=== PATIENT | female | born 1960 | race Caucasian/White ===

== ENCOUNTER → 2020-11-08 14:02 | Outpatient (CLI) | payer OTHER, SELFPAY ==
--- NOTE | 2020-11-08 | DI.RAD.S_ITS ---
PROCEDURE: XR KNEE RT 3V INDICATIONS: PAIN IN RT KNEE TECHNIQUE: 3 views of the knee were acquired. COMPARISON: None. FINDINGS: Bones: No fractures or dislocations. No suspicious bony lesions. Moderate osteoarthritic changes, most pronounced at the patellofemoral joint. Soft tissues: No joint effusion. No suspicious soft tissue calcifications. IMPRESSION: Moderate osteoarthritis. Dictated by: Jammie Marquez M.D. on 11/08/2020 at 16:59 Approved by: Jammie Marquez M.D. on 11/08/2020 at 17:00
--- NOTE | 2020-11-08 | DI.RAD.S_ITS ---
PROCEDURE: XR KNEE LT 3V INDICATIONS: PAIN IN RT KNEE TECHNIQUE: 3 views of the knee were acquired. COMPARISON: [facility], , XR KNEE RT 3V, 11/08/2020, 14:37. FINDINGS: Bones: No fractures or dislocations. No suspicious bony lesions. Moderate degenerative joint disease at the medial femorotibial compartment and patellofemoral compartment. Soft tissues: Small joint effusion. No suspicious soft tissue calcifications. IMPRESSION: Moderate osteoarthritis and small knee joint effusion. Dictated by: Jammie Marquez M.D. on 11/08/2020 at 16:58 Approved by: Jammie Marquez M.D. on 11/08/2020 at 16:59
[2020-11-08 15:42] LABS: Add Manual Diff / Slide Review NO; Basophils Absolute Auto 100 /uL (0-100); Basophils Percent Auto 1.3 % (0-2); Eosinophils Absolute Auto 100 /uL (0-450); Eosinophils Percent Auto 1.7 % (2-4); Hemoglobin 14.5 g/dL (12.0-16.0); Lymphocytes Absolute Auto 2200 /uL (1100-4500); Lymphocytes Percent Auto 24.8 % (25-40); Mean Corpuscular HGB Conc 34.6 % (30-36); Mean Corpuscular Hemoglobin 28.9 PG (26-34); Mean Corpuscular Volume 83.7 fL (80-100); Monocytes Absolute Auto 600 /uL (0-900); Monocytes Percent Auto 6.6 % (3-14); Neutrophils Absolute Auto 5700 /uL (1500-7000); Neutrophils Percent Auto 65.6 % (50-75); Platelet Count 289 X10^3/uL (150-400); Red Blood Cell Count 5.02 X10^6/uL (4.0-5.2); Red Cell Distribution Width 14.3 % (11.6-14.8); White Blood Cell Count 8.7 X10^3/uL (4.5-11.0)
[2020-11-08 16:53] LABS: Thyroid Stimulating Hormone 4.31 uIU/mL (0.47-4.68)
[2020-11-08 16:58] LABS: Alanine Aminotransferase 27 IU/L (<35); Albumin 4.5 g/dL (3.5-5.0); Albumin Globulin Ratio 1.6 (1.0-2.8); Alkaline Phosphatase 93 U/L (38-126); Aspartate Aminotransferase 33 IU/L (14-36); BUN Creatinine Ratio 19.7 (6-22); Bilirubin Total 0.7 mg/dL (0.2-1.3); Blood Urea Nitrogen 15 mg/dL (7-17); Calcium 9.9 mg/dL (8.4-10.2); Carbon Dioxide 25 mmol/L (22-32); Chloride 101 mmol/L (98-107); Cholesterol 280 mg/dL (140-199); Estimated Glomerular Filt Rate > 60.0 mL/min (>60); Gamma Glutamyl Transpeptidase 72 U/L (12-43); Globulin 2.9 g/dL (1.7-4.1); Glucose 113 mg/dL (70-100); HDL Cholesterol 62 mg/dL (40-60); HEMOLYSIS < 15 (0-50); LDL Cholesterol Calculated 166 mg/dL (<100); Potassium 4.7 mmol/L (3.4-5.1); Sodium 137 mmol/L (137-145); Total Protein 7.4 g/dL (6.3-8.2); Triglycerides 259 mg/dL (35-150)
[2020-11-08 17:01] LABS: Hemoglobin A1C% w Est Avg Glu 5.9 % (4.0-6.0)
[2020-11-08 17:42] LABS: Vitamin B12 629 pg/mL (239-931)
[2020-11-10 15:11] LABS: Albumin 3.7 g/dL (2.9-4.4); Alpha-1-Globulin 0.3 g/dL (0.0-0.4); Alpha-2-Globulin 0.8 g/dL (0.4-1.0); Gamma Globulin 1.1 g/dL (0.4-1.8); Globulin Total 3.4 g/dL (2.2-3.9); Immunoglobulin A, Serum 208 mg/dL (87-352); Immunoglobulin G,Serum 912 mg/dL (586-1602); Immunoglobulin M, Serum 185 mg/dL (26-217); Protein, Total 7.1 g/dL (6.0-8.5)
== END ==
PROVIDERS: PCP Internal Medicine; Referring Provider Internal Medicine; Visit Provider Internal Medicine
DX: K75.0 Abscess of liver (principal); G58.9 Mononeuropathy, unspecified; R73.9 Hyperglycemia, unspecified; E78.5 Hyperlipidemia, unspecified; I10 Essential (primary) hypertension; M25.561 Pain in right knee
CPT/HCPCS: 36415; 73562; 80053; 80061; 82607; 82784; 82977; 83036; 84155; 84165; 84443; 85025; 86334

== ENCOUNTER → 2020-11-15 13:16 | Outpatient (CLI) | payer OTHER, SELFPAY ==
[2020-11-15] MEDS: COVID-19 VACC #1, MRNA(MOD) 100 MCG/0.5 ML VIAL IM (13:34)
== END ==
PROVIDERS: PCP Internal Medicine; Visit Provider Internal Medicine
DX: Z23 Encounter for immunization (principal)
CPT/HCPCS: 0011A; 91301

== ENCOUNTER → 2020-12-14 15:24 | Outpatient (CLI) | payer OTHER, SELFPAY ==
[2020-12-14] MEDS: COVID-19 VACC #2, MRNA(MOD) 100 MCG/0.5 ML VIAL IM (15:31)
== END ==
PROVIDERS: PCP Internal Medicine; Visit Provider Internal Medicine
DX: Z23 Encounter for immunization (principal)
CPT/HCPCS: 0012A; 91301

== ENCOUNTER → 2020-12-29 07:56 | Outpatient (CLI) | payer OTHER, SELFPAY ==
[2020-12-29 10:36] LABS: COVID19 -Nasal RAPID Negative (Negative)
== END ==
PROVIDERS: PCP Internal Medicine; Visit Provider Obstetrics & Gynecology
DX: Z01.812 Encounter for preprocedural laboratory examination (principal); Z20.822 Contact with and (suspected) exposure to COVID-19
CPT/HCPCS: 87635

== ENCOUNTER 2020-12-30 06:30 | Day surgery (SDC) | payer OTHER, SELFPAY ==
[2020-12-28 11:31] VITALS: BMI 55.0
[2020-12-30] VITALS (8 sets, daily range): BP systolic 141–162; BP diastolic 70–88; PULSE 66–92; RESP 12–22; TEMP 36.6–37.1; O2SAT 96–98; BMI 55.6
--- NOTE | 2020-12-30 | PATH_ITS ---
[facility] Accession Number: [id number] . 01 Material submitted: . PART A: endometrium - ENDOMETRIAL POLYPS PART B: endometrium - ENDOMETRIAL CURETTAGE . 02 Diagnosis: A. Endometrium, Polyps, Biopsies: Fragments of benign endometrial polyp. No evidence of neoplasia or hyperplasia. . B. Endometrium, Curettage: Scant fragments of inactive/noncycling endometrium. No evidence of neoplasia or hyperplasia. [facility] 01/04/2021 1305 Local . 02 Electronically signed: . Yvrose Osman MD, Pathologist NPI- [id number] . 01 Gross description: . A. The specimen is received in formalin, labeled endometrial polyp, and consists of multiple jimenez-pink fragments of soft tissue measuring 3.0 x 2.5 x 0.7 cm in aggregate. The base of the largest fragment is inked blue, and the fragment is bisected. The specimen is entirely submitted in cassette A1. B. The specimen is received in formalin, labeled endometrial curettage, and consists of multiple jimenez-pink fragments of soft tissue admixed with clotted blood measuring 1.2 x 1.0 x 0.2 cm in aggregate. The specimen is filtered and entirely submitted in cassette B1. ([id number]) /[facility] 12/31/2020 1451 Local . 02 Pathologist provided ICD-10: N84.0 . 02 CPT . 187331, [id number] Performed at: 01 [facility] [address] [place] [address], [place], [place] [id number] MD Will Guan MD Phone: [phone] Performed at: 02 [facility] [address] [place], [place] [id number] MD Yvrose Osman MD Phone: [phone]
--- NOTE | 2020-12-30 07:17 | PM.PREOP ---
Pre-operative Note COVID-19 COVID-19 status: Negative Result date/Date tested (Pos, Neg/Pending): 12/29/20 Interval Note History & Physical reviewed/Exam performed by Physician: Yes Changes to H&P: No
--- NOTE | 2020-12-30 07:20 | SUR.OPER ---
Lithotomy on padded OR bed, head on pillow, arms secured on padded arm boards at <90 degrees abduction. Legs secured in padded bariatric yellow fins stirrups.
[2020-12-30] MEDS: LACTATED RINGERS 1,000 ML 100 ML IV (07:25)
--- NOTE | 2020-12-30 08:20 | P.OP_ITS ---
Operative Date/Time/Diagnoses Date of procedure: 12/30/20 Time of procedure: 08:20 Pre-op diagnosis: Thickened endometrium on ultrasound Post-op diagnosis: same (Benign appearing endometrial polyps) Procedure & Clinicians Procedure: Hysteroscopy with resection of polyps and endometrial curettage Same procedure as scheduled: Yes Indications: Thickened endometrium on ultrasound Surgeon: Diane Tesfaye Click Yes if Unassisted: Yes Anesthesia Type: General Operative Notes Findings: Two large endometrial polyps that were benign in appearance, thin endometrium otherwise Closure Type: not applicable Specimen(s): other (Endometrial polyps and endometrial curettage) Estimated Blood Loss (mL): 1 Blood products transfused: none Procedure in detail: The patient was brought to the operating room where she underwent general anesthesia. She was placed in low stirrups She was prepped and draped in usual sterile fashion with pulsatile stockings in place and functional, warming in place. Her bladder was drained with in and out catheter. A single-tooth tenaculum was placed on the anterior lip of the cervix and the uterus dilated to #8 Hegar dilator. The hysteroscope was placed into the uterus with a sorbitol solution running and under constant suction. The resecting loop set at 80 W of cutting was used to resect the polyps down to the level of the endometrium. A endometrial curettage was performed. The polyp and the endometrial curettage w as sent to pathology. The patient went to recovery room in good condition counts of instruments and sponges were correct. Estimated blood loss less than 5 mL. The sorbitol solution I=O approximately 2000 mL. Complications: none Post-operative Condition: stable Disposition: same day surgery Plan for aftercare: Home when awake and stable. Further treatment and evaluation based on biopsy results.
[2020-12-30] MEDS: KETOROLAC 30 MG/ML VIAL IV (08:24)
[2020-12-30] MEDS: ACETAMINOPHEN 325 MG TABLET 975 MG PO (08:56)
== END 2020-12-30 09:20 | disposition home or self-care (01) ==
PROVIDERS: PCP Internal Medicine; Referring Provider Specialist; Visit Provider Specialist
PROC: 0UDB8ZZ Extraction of Endometrium, Via Natural or Artificial Opening Endoscopic (ICD-10-PCS; CPT 58558; principal; 2020-12-30 07:45)
DX: N84.0 Polyp of corpus uteri (principal); I10 Essential (primary) hypertension; K21.9 Gastro-esophageal reflux disease without esophagitis; K22.70 Barrett's esophagus without dysplasia
CPT/HCPCS: 58558; 82962; J0330; J1100; J1885; J2250; J2405; J2704; J3010

== ENCOUNTER → 2021-02-09 13:12 | Outpatient (CLI) | payer OTHER, SELFPAY ==
--- NOTE | 2021-02-09 13:12 | DI.US.S_ITS ---
PROCEDURE: US PELVIC COMPLETE INDICATIONS: Pelvic pain S/P D C TECHNIQUE: Real-time scanning was performed of the pelvic organs, with image documentation. Additional endovaginal scanning was necessary due to incomplete visualization of the adnexal and endometrial structures by transabdominal scanning. COMPARISON: [facility], US, US PELVIC COMPLETE, 12/02/2020, 15:34. FINDINGS: Uterus: Uterus is retroverted and normal in size at 3.2 x 3.6 x 5.8 cm. The endometrium measures 7.6 mm in combined thickness. This is abnormally thickened for postmenopausal patient and there is a small amount of heterogeneity to the endometrial lining thickening and a small amount of free fluid. Ovaries: Normal on the right measuring 1.3 x 1.1 x 0.9 cm and also normal on the left measuring 1.8 x 1.3 x 1.1 cm. Other: No pathologic free abdominal or pelvic fluid. IMPRESSION: The prior endometrial lining thickening 12/02/20 had measured up to 13.6 mm, and currently measures 7.6 mm. Reportedly D&C procedure was performed 12/30/20. The current mild endometrial lining thickening may reflect sequela of this recent procedure and no Jostin finding suggestive of endometritis or endometrial abscess formation is seen. The endometrial lining does not appear hyperemic. Source of current persistent pelvic pain after D&C procedure is not found. Follow-up repeat pelvic ultrasound in 6-8 weeks likely is warranted to confirm further resolution of endometrial lining thickening. Dictated by: Khang Cheng M.D. on 02/09/2021 at 15:11 Approved by: Khang Cheng M.D. on 02/09/2021 at 15:15
== END ==
PROVIDERS: PCP Internal Medicine; Referring Provider Specialist; Visit Provider Specialist
DX: R10.2 Pelvic and perineal pain (principal); Z98.890 Other specified postprocedural states
CPT/HCPCS: 76856

== ENCOUNTER → 2021-03-30 14:53 | Outpatient (CLI) | payer OTHER, SELFPAY | PROVIDERS: PCP Internal Medicine; Visit Provider Nurse Practitioner Family | DX: N89.8 Other specified noninflammatory disorders of vagina (principal) | CPT/HCPCS: 87210 ==

== ENCOUNTER → 2021-04-19 11:55 | Outpatient (CLI) | payer OTHER, SELFPAY ==
--- NOTE | 2021-04-19 11:56 | DI.CT.S_ITS ---
PROCEDURE: CT ABDOMEN PELVIS W CON INDICATIONS: Chronic pelvic pain and low grade fever 3 mo PO TECHNIQUE: After the administration of oral and intravenous contrast, axial sections were acquired from the lung bases to the pubic symphysis. Coronal and sagittal reformats were performed. For radiation dose reduction, the following was used: automated exposure control, adjustment of mA and/or kV according to patient size. COMPARISON:None. FINDINGS: Image quality: Excellent. Lung bases: Unremarkable. Heart: No significant findings. ABDOMEN: Liver: Unremarkable. Gallbladder: Previously resected Biliary ducts: Unremarkable. Pancreas: Unremarkable. Spleen: Unremarkable. Adrenal Glands: Unremarkable. Kidneys and Ureters: Unremarkable. Stomach and Bowel: Stomach, small bowel loops, and colon are unremarkable. Peritoneum: No abnormal intraperitoneal fluid. No free air. Ventral Wall: No hernia. Abdominal Nodes: No retroperitoneal or mesenteric adenopathy by size criteria. Vessels: Aorta and inferior vena cava are normal in size. PELVIS: Pelvic Organs: Unremarkable. Bladder: Unremarkable. Pelvic Nodes: No enlarged lymph nodes. Miscellaneous: No inguinal hernias are seen. Bones: Unremarkable. IMPRESSION: No sign of infection or neoplasm. Prior cholecystectomy. Source of current symptoms is not seen. Dictated by: Khang Cheng M.D. on 04/19/2021 at 17:37 Approved by: Khang Cheng M.D. on 04/19/2021 at 17:38
== END ==
PROVIDERS: PCP Internal Medicine; Referring Provider Specialist; Visit Provider Specialist
DX: R10.2 Pelvic and perineal pain (principal); R50.9 Fever, unspecified; R93.89 Abnormal findings on diagnostic imaging of other specified body structures; G89.29 Other chronic pain; Z98.890 Other specified postprocedural states; Z90.49 Acquired absence of other specified parts of digestive tract
CPT/HCPCS: 74177

== ENCOUNTER → 2021-05-17 14:09 | Outpatient (CLI) | payer OTHER, SELFPAY ==
[2021-05-17 14:50] LABS: COVID19 -Nasal RAPID Negative (Negative)
== END ==
PROVIDERS: PCP Internal Medicine; Visit Provider Physician Assistant
DX: J02.9 Acute pharyngitis, unspecified (principal); R09.81 Nasal congestion; R51.9 Headache, unspecified
CPT/HCPCS: 87635

== ENCOUNTER → 2021-05-17 14:53 | Outpatient (CLI) | payer OTHER, SELFPAY ==
--- NOTE | 2021-05-17 14:54 | DI.RAD.S_ITS ---
PROCEDURE: XR CHEST 2V INDICATIONS: fever x5d, chest tightness, hx PNA similar TECHNIQUE: 2 views of the chest were acquired. COMPARISON: None. FINDINGS: Surgical changes and devices: None. Lungs and pleura: Lungs are clear. No pleural effusions or pneumothorax. Mediastinum: Mediastinal contours are normal. Heart size is normal. Bones and chest wall: No suspicious bony abnormalities. Soft tissues appear unremarkable. IMPRESSION: No acute cardiopulmonary abnormality. Dictated by: Fausto Parkinson M.D. on 05/17/2021 at 15:12 Approved by: Fausto Parkinson M.D. on 05/17/2021 at 15:13
== END ==
PROVIDERS: PCP Internal Medicine; Referring Provider Physician Assistant; Visit Provider Physician Assistant
DX: R50.9 Fever, unspecified (principal); J02.9 Acute pharyngitis, unspecified; R09.81 Nasal congestion; R51.9 Headache, unspecified; R07.89 Other chest pain
CPT/HCPCS: 71046; 87635

== ENCOUNTER 2021-09-06 14:14 | Emergency (ER) | payer OTHER, SELFPAY ==
[2021-09-06 14:16] VITALS: BP 222/103; PULSE 99; RESP 18; TEMP 36.6; O2SAT 100; BMI 55.7
--- NOTE | 2021-09-06 14:23 | DI.RAD.S_ITS ---
PROCEDURE: XR CHEST 1V INDICATIONS: chest pain TECHNIQUE: One view of the chest was acquired. COMPARISON: None. FINDINGS: Surgical changes and devices: None. Lungs and pleura: Lungs are clear. No pleural effusions or pneumothorax. Mediastinum: Mediastinal contours appear normal. Heart size is normal. Bones and chest wall: No suspicious bony lesions. Overlying soft tissues appear unremarkable. IMPRESSION: No acute cardiopulmonary process demonstrated radiographically. Dictated by: Naun Akers M.D. on 09/06/2021 at 13:54 Approved by: Naun Akers M.D. on 09/06/2021 at 14:16
[2021-09-06 14:47] LABS: Add Manual Diff / Slide Review NO; Basophils Absolute Auto 100 /uL (0-100); Basophils Percent Auto 1.3 % (0-2); Eosinophils Absolute Auto 100 /uL (0-450); Eosinophils Percent Auto 0.9 % (2-4); Hematocrit 40.9 % (36-46); Hemoglobin 13.4 g/dL (12.0-16.0); Lymphocytes Absolute Auto 2000 /uL (1100-4500); Lymphocytes Percent Auto 23.7 % (25-40); Mean Corpuscular HGB Conc 32.9 % (30-36); Mean Corpuscular Hemoglobin 26.9 PG (26-34); Mean Corpuscular Volume 81.8 fL (80-100); Monocytes Absolute Auto 500 /uL (0-900); Monocytes Percent Auto 6.3 % (3-14); Neutrophils Absolute Auto 5600 /uL (1500-7000); Neutrophils Percent Auto 67.8 % (50-75); Platelet Count 337 X10^3/uL (150-400); Red Cell Distribution Width 14.3 % (11.6-14.8); White Blood Cell Count 8.3 X10^3/uL (4.5-11.0)
[2021-09-06 15:03] LABS: Alanine Aminotransferase 24 IU/L (<35); Albumin 4.6 g/dL (3.5-5.0); Albumin Globulin Ratio 1.3 (1.0-2.8); Alkaline Phosphatase 91 U/L (38-126); Aspartate Aminotransferase 37 IU/L (14-36); BUN Creatinine Ratio 22.1 (6-22); Bilirubin Total 0.7 mg/dL (0.2-1.3); Blood Urea Nitrogen 21 mg/dL (7-17); Carbon Dioxide 25 mmol/L (22-32); Chloride 106 mmol/L (98-107); Creatine Kinase 45 U/L (30-135); Estimated Glomerular Filt Rate > 60.0 mL/min (>60); Globulin 3.5 g/dL (1.7-4.1); Glucose 126 mg/dL (70-100); HEMOLYSIS < 15 (0-50); Lipase 82 U/L (23-300); Magnesium 1.8 mg/dL (1.6-2.3); Sodium 141 mmol/L (137-145); Total Protein 8.1 g/dL (6.3-8.2)
[2021-09-06 15:14] LABS: Troponin I < 0.012 ng/mL (0.01-0.034)
--- NOTE | 2021-09-06 16:14 | DI.CT.S_ITS ---
PROCEDURE: CT HEAD/BRAIN WO CON INDICATIONS: Left-sided headache TECHNIQUE: Noncontrast 4.5 mm thick angled axial sections acquired from the foramen magnum to the vertex, with coronal and sagittal reformats. For radiation dose reduction, the following was used: automated exposure control, adjustment of mA and/or kV according to patient size. COMPARISON: None. FINDINGS: Image quality: Excellent. CSF spaces: Basal cisterns are patent. No extra-axial fluid collections. The ventricles are symmetric in size and shape. Brain: No intracranial bleeds or masses. There is cerebral volume loss for age, with resultant ventricular and sulcal prominence. There are periventricular and deep white matter chronic small vessel ischemic changes. There is intracranial internal carotid artery atherosclerosis. Skull and face: Calvarium and visualized facial bones appear intact, without suspicious lesions. Sinuses: Visualized sinuses and mastoids are clear. IMPRESSION: No acute intracranial disease process. Dictated by: Flor Day MD, PhD on 09/06/2021 at 16:41 Approved by: Flor Day MD, PhD on 09/06/2021 at 16:43
--- NOTE | 2021-09-06 16:14 | ED.GENADULT ---
HPI - General Adult General Chief complaint: Hypertension Stated complaint: High BP Time Seen by Provider: 09/06/21 14:53 Source: patient Mode of arrival: Ambulatory History of Present Illness HPI narrative: Patient here for evaluation high blood pressure. Patient was at a blood donation center yesterday. Blood pressure measured there had a high diastolic measurement over 100 and was decline to donate. Patient states this is unusual for her. Just last week she took her home blood pressure and as she always does on a weekly basis. Her baseline systolic ranges between 130-150, with diastolic 90. She denies any headache or numbness tingling weakness confusion slurred speech or facial droop yesterday. Today she developed small left frontal headache that radiates to the left advent and down to her neck. Blood pressure on arrival noted. It has improved without intervention so far. She is on benazepril for high blood pressure without any dosage changes for over [address] Kathy trinidad. No numbness tingling or weakness. She takes her blood pressure medication at night. One month ago she states she saw her family doctor and it was elevated for blood pressure. In the 1st 2 years of taking benazepril her systolic would be 120/80. She asked if they needed to change her benazepril does and at the time no changes. Patient agrees that medications will eventually need to be changed or increase in dosage. She agrees she will likely take her benazepril twice a day. She usually takes it between 10:00 p.m. and midnight each night. Related Data Home Medications Medication Instructions Recorded Confirmed benazepril 10 mg tablet 10 mg PO DAILY 12/02/20 05/17/21 gabapentin 100 mg capsule 100 mg PO DAILY 12/02/20 05/17/21 rabeprazole 20 mg tablet,delayed 20 mg PO DAILY 12/02/20 05/17/21 release zolpidem 5 mg tablet 5 mg PO BEDTIME PRN 12/02/20 05/17/21 cyclobenzaprine 10 mg tablet 10 mg PO .prn tab 03/30/21 05/17/21 sertraline 50 mg tablet 50 mg PO .prn tab 03/30/21 05/17/21 Allergies Allergy/AdvReac Type Severity Reaction Status Date / Time lavender (Lavandula Allergy Severe Swelling Verified 01/12/22 14:22 angustifolia) of Lip/Tongue/Throat lanolin Allergy Rash Verified 09/06/21 14:22 hydromorphone AdvReac Severe Rash Verified 09/06/21 14:22 [email or web address] Allergy Severe Swelling Uncoded 05/17/21 14:12 of Lip/Tongue/Throat Review of Systems Review of Systems Narrative: GENERAL: Denies chills, fatigue, malaise, fever, sweats. HEENT: Denies sinus pain, ear pain, sore throat RESPIRATORY: Denies dyspnea, cough CARDIOVASCULAR: Denies chest pain, palpitations GASTROINTESTINAL: Denies nausea, vomiting, abdominal pain : Denies dysuria, frequency, hematuria MUSCULOSKELETAL: denies muscle or bony pain SKIN: Denies rash, skin lesions NEUROLOGIC: Denies weakness, numbness, positive headache ROS Unobtainable: All systems reviewed & are unremarkable except as noted in HPI and below Patient History Medical History Anxiety Marinelli's esophagus Chronic insomnia Degenerative arthritis Diverticulosis GERD (gastroesophageal reflux disease) HLD (hyperlipidemia) HTN (hypertension) Impaired fasting glucose Kidney stone Morbid obesity with BMI of 50.0-59.9, adult TYLOR (obstructive sleep apnea) Status post hysteroscopy (~12/30/20) Traumatic leg injury (2016) Surgical History History of colonoscopy (08/2019) Hx of cholecystectomy (2007) Hx of tonsillectomy (1969) Social History Smoking Status: Never smoker alcohol intake: current Smoking Status: Never smoker alcohol intake frequency: a few times a month Substance Use Type: does not use Exam Narrative Exam Narrative: GENERAL: in no distress, not toxic not dyspneic HEAD: Normocephalic. EYES: Pupils equal round No scleral icterus. ENT: Mucous membranes moist. NECK: Trachea midline. No carotid bruit CARDIOVASCULAR: Regular rate and rhythm without murmurs RESPIRATORY: Clear to auscultation. Breath sounds equal bilaterally. No wheezes, rales, or rhonchi. GASTROINTESTINAL: Abdomen soft, non-tender EXTREMITIES: No gross deformities. NEURO: AOx4. Clear speech no facial droop light touch intact bilateral face and hands with strong equal mechanical systems engineer SKIN: Warm and dry PSYCH: Not anxious, is cooperative Initial Vital Signs Initial Vital Signs: Vital Signs Temperature 98 F 09/06/21 14:16 Pulse Rate 99 H 09/06/21 14:16 Respiratory Rate 18 09/06/21 14:16 Blood Pressure 222/103 H 09/06/21 14:16 Pulse Oximetry 100 09/06/21 14:16 Course Course Course Narrative: No new issues during course of stay Orders Ordered: Discontinued Medications Lisinopril (Lisinopril 5 Mg Tablet) 5 mg PO NOW ONE Stop: 09/06/21 16:21 Last Admin: 09/06/21 16:33 Dose: 5 mg Documented by: JAVED Reevaluation(s) Reevaluation #1: Blood pressure improved to 163/77. Reviewed results patient again. Agrees with treatment plan and changes in blood pressure medication. Time: 17:25 Vital Signs Vital signs: Vital Signs - 8 hr 09/06/21 14:16 09/06/21 16:33 Temperature 98 F Pulse Rate 99 H 83 Respiratory Rate 18 Blood Pressure 222/103 H 172/80 H Pulse Oximetry 100 Medical Decision Making Differential Diagnosis Differential Diagnosis: Hypertension/headache Lab Data Result diagrams: 09/06/21 14:27 09/06/21 14:27 Labs: Lab Results 09/06/21 09/06/21 Range/Units 14:27 14:27 WBC 8.3 (4.5-11.0) X10^3/uL RBC 5.00 (4.0-5.2) X10^6/uL Hgb 13.4 (12.0-16.0) g/dL Hct 40.9 (36-46) % MCV 81.8 (80-100) fL MCH 26.9 (26-34) PG MCHC 32.9 (30-36) % RDW 14.3 (11.6-14.8) % Plt Count 337 (150-400) X10^3/uL Neut % (Auto) 67.8 (50-75) % Lymph % (Auto) 23.7 L (25-40) % [place] % (Auto) 6.3 (3-14) % Eos % (Auto) 0.9 L (2-4) % Baso % (Auto) 1.3 (0-2) % Neut # (Auto) 5600 (1885-9443) /uL Lymph # (Auto) 2000 (8307-9872) /uL [place] # (Auto) 500 (0-900) /uL Eos # (Auto) 100 (0-450) /uL Baso # (Auto) 100 (0-100) /uL Sodium 141 (137-145) mmol/L Potassium 4.0 (3.4-5.1) mmol/L Chloride 106 (98-107) mmol/L Carbon Dioxide 25 (22-32) mmol/L BUN 21 H (7-17) mg/dL Creatinine 0.95 (0.52-1.04) mg/dL Estimated GFR > 60.0 (>60) mL/min BUN/Creatinine Ratio 22.1 H (6-22) Glucose 126 H (70-100) mg/dL Calcium 10.0 (8.4-10.2) mg/dL Magnesium 1.8 (1.6-2.3) mg/dL Total Bilirubin 0.7 (0.2-1.3) mg/dL AST 37 H (14-36) IU/L ALT 24 (<35) IU/L Alkaline Phosphatase 91 (38-126) U/L Total Creatine Kinase 45 (30-135) U/L CK-MB (CK-2) TNP CK-MB (CK-2) Rel Index TNP Troponin I < 0.012 (0.01-0.034) ng/mL Total Protein 8.1 (6.3-8.2) g/dL Albumin 4.6 (3.5-5.0) g/dL Globulin 3.5 (1.7-4.1) g/dL Albumin/Globulin Ratio 1.3 (1.0-2.8) Lipase 82 (23-300) U/L Imaging Data CT scan - head: Radiologist's Impression: [address] [address] [address] Scan Report Signed Patient: Morelia Esparza MR#: [id number] : 1960 Acct:[id number] Age/Sex: 61 / F Date of Service: 09/06/21 Loc: ED Accession Number: [id number] ?? Procedure: CT head/brain wo con Ordering Provider: Victor Manuel Norton MD PROCEDURE:? CT HEAD/BRAIN WO CON ? INDICATIONS:? Left-sided headache ? TECHNIQUE:? Noncontrast 4.5 mm thick angled axial sections acquired from the foramen magnum to the vertex, with coronal and sagittal reformats.? For radiation dose reduction, the following was used:? automated exposure control, adjustment of mA and/or kV according to patient size.? ? COMPARISON:? None. ? FINDINGS:? Image quality:? Excellent.? ? CSF spaces:? Basal cisterns are patent.? No extra-axial fluid collections.? The ventricles are symmetric in size and shape.? ? Brain:? No intracranial bleeds or masses.? There is cerebral volume loss for age, with resultant ventricular and sulcal prominence.? There are periventricular and deep white matter chronic small vessel ischemic changes.? There is intracranial internal carotid artery atherosclerosis.? ? Skull and face:? Calvarium and visualized facial bones appear intact, without suspicious lesions.? ? Sinuses:? Visualized sinuses and mastoids are clear.? ? IMPRESSION:? No acute intracranial disease process. ? ? Dictated by: Flor Day MD, PhD on 09/06/2021 at 16:41 ? ? Approved by: Flor Day MD, PhD on 09/06/2021 at 16:43 ? ECG Data Interpretation: Normal sinus rhythm rate [address] elevation or depression MDM Narrative Medical decision making narrative: Appropriate for discharge home. Exam and laboratory studies and imaging reassuring. Blood pressure started improving before giving lisinopril. Patient agrees for treatment plan of likely taking her blood pressure medication twice a day as she has been on this medication for over 2 years without any dosage changes. Return precautions reviewed with her. Discharge Plan Departure Patient Disposition: Home Clinical Impression: Hypertension Instructions: DI for High Blood Pressure Activity Restrictions/Additional Instructions: Call family doctor office in the morning for office appointment with your family doctor or associate for recheck of your blood pressure next week. Take your benazepril blood pressure medication in the morning and at nighttime. Return if worse if any questions or concerns Prescriptions: No Action cyclobenzaprine 10 mg tablet 10 mg PO .prn 0RF benazepril 10 mg tablet 10 mg PO DAILY 0RF gabapentin 100 mg capsule 100 mg PO DAILY 0RF rabeprazole 20 mg tablet,delayed release (DR/EC) 20 mg PO DAILY 0RF Label Comments: 3 months ago was last dose zolpidem 5 mg tablet 5 mg PO BEDTIME PRN (Reason: Sleep) 0RF sertraline 50 mg tablet 50 mg PO .prn 0RF Referrals: Kathy Trinidad MD [Primary Care Provider] -
[2021-09-06 16:33] VITALS: BP 172/80; PULSE 83
[2021-09-06] MEDS: lisinopriL 5 MG TABLET PO (16:33)
[2021-09-06 17:35] VITALS: BP 163/77
== END 2021-09-06 17:37 | disposition home or self-care (01) ==
PROVIDERS: Emergency Provider Emergency Medicine; Family Provider Internal Medicine; PCP Internal Medicine
DX: I10 Essential (primary) hypertension (principal); R51.9 Headache, unspecified
CPT/HCPCS: 36415; 70450; 71045; 80053; 82550; 83690; 83735; 84484; 85025; 93005; 93010; 99284

== ENCOUNTER 2021-09-25 10:54 | Emergency (ER) | payer OTHER, SELFPAY ==
[2021-09-25] VITALS (13 sets, daily range): BP systolic 132–187; BP diastolic 69–86; PULSE 72–87; RESP 13–20; TEMP 36.9; O2SAT 96–100; BMI 55.7
--- NOTE | 2021-09-25 11:25 | DI.RAD.S_ITS ---
PROCEDURE: XR CHEST 1V INDICATIONS: chest pain TECHNIQUE: One view of the chest was acquired. COMPARISON: [facility], CR, XR CHEST 1V, 09/06/2021, 14:31. FINDINGS: Surgical changes and devices: None. Lungs and pleura: Lungs are clear. No pleural effusions or pneumothorax. Mediastinum: Mediastinal contours appear normal. Heart size is normal. Bones and chest wall: No suspicious bony lesions. Overlying soft tissues appear unremarkable. IMPRESSION: 1. No acute cardiopulmonary disease. Dictated by: Will Mooney M.D. on 09/25/2021 at 11:55 Approved by: Will Mooney M.D. on 09/25/2021 at 11:55
[2021-09-25 11:31] LABS: Add Manual Diff / Slide Review NO; Basophils Absolute Auto 0 /uL (0-100); Basophils Percent Auto 0.7 % (0-2); Eosinophils Absolute Auto 100 /uL (0-450); Eosinophils Percent Auto 1.9 % (2-4); Hematocrit 38.4 % (36-46); Hemoglobin 12.7 g/dL (12.0-16.0); Lymphocytes Absolute Auto 1600 /uL (1100-4500); Lymphocytes Percent Auto 21.7 % (25-40); Mean Corpuscular HGB Conc 33.1 % (30-36); Mean Corpuscular Hemoglobin 26.7 PG (26-34); Mean Corpuscular Volume 80.7 fL (80-100); Monocytes Absolute Auto 500 /uL (0-900); Monocytes Percent Auto 6.5 % (3-14); Neutrophils Absolute Auto 5000 /uL (1500-7000); Neutrophils Percent Auto 69.2 % (50-75); Platelet Count 312 X10^3/uL (150-400); Red Blood Cell Count 4.76 X10^6/uL (4.0-5.2); Red Cell Distribution Width 14.9 % (11.6-14.8); White Blood Cell Count 7.2 X10^3/uL (4.5-11.0)
[2021-09-25 11:39] LABS: Alanine Aminotransferase 21 IU/L (<35); Albumin 4.2 g/dL (3.5-5.0); Albumin Globulin Ratio 1.3 (1.0-2.8); Alkaline Phosphatase 84 U/L (38-126); Aspartate Aminotransferase 33 IU/L (14-36); BUN Creatinine Ratio 17.3 (6-22); Bilirubin Total 0.6 mg/dL (0.2-1.3); Blood Urea Nitrogen 14 mg/dL (7-17); Calcium 9.3 mg/dL (8.4-10.2); Carbon Dioxide 26 mmol/L (22-32); Chloride 106 mmol/L (98-107); Creatine Kinase 39 U/L (30-135); Estimated Glomerular Filt Rate > 60.0 mL/min (>60); Globulin 3.2 g/dL (1.7-4.1); Glucose 132 mg/dL (70-100); HEMOLYSIS 19 (0-50); Lipase 73 U/L (23-300); Magnesium 1.8 mg/dL (1.6-2.3); Potassium 4.2 mmol/L (3.4-5.1); Sodium 139 mmol/L (137-145); Total Protein 7.4 g/dL (6.3-8.2)
[2021-09-25 11:49] LABS: Troponin I < 0.012 ng/mL (0.01-0.034)
[2021-09-25 12:40] LABS: COVID19 -Nasal RAPID Negative (Negative)
--- NOTE | 2021-09-25 13:36 | ED.CHESTPAIN ---
HPI - Chest Pain <Milana Conley PA-C - Last Filed: 09/25/21 21:33> General Chief Complaint: Chest Pain Stated Complaint: High BP, chest pain, nausea Time Seen by Provider: 09/25/21 11:58 Source: patient Mode of arrival: Ambulatory Limitations: no limitations History of Present Illness HPI narrative: 61-year-old female with past medical history hypertension, hypercholesterolemia presents to the ED with 2 days of left-sided chest pressure. Patient states that she started experiencing left-sided chest pressure yesterday evening, and a fluttering feeling. Patient endorses nausea. Pain does not radiate. No aggravating or alleviating factors. Patient has a history of GERD, however patient states that her GERD discomfort is very different than. her current symptoms. Denies history of blood clots. Patient currently takes 30 mg of benazepril daily, is slated to start on 12.5 of hydrochlorothiazide for blood pressure control. Patient states that her blood pressure went up yesterday since her chest pressure started with systolic as high as 200. Patient denies fever, chills, shortness of breath, cough, vomiting, abdominal pain, back pain, lightheadedness, dizziness, syncope. Patient also endorses a headache that she has had for the last 2 weeks which she says is exacerbated every time her blood pressure goes up. Patient denies neck pain, neck stiffness. Denies IV drug use. Related Data Home Medications Medication Instructions Recorded Confirmed benazepril 10 mg tablet 10 mg PO DAILY 12/02/20 05/17/21 gabapentin 100 mg capsule 100 mg PO DAILY 12/02/20 05/17/21 rabeprazole 20 mg tablet,delayed 20 mg PO DAILY 12/02/20 05/17/21 release zolpidem 5 mg tablet 5 mg PO BEDTIME PRN 12/02/20 05/17/21 cyclobenzaprine 10 mg tablet 10 mg PO .prn tab 03/30/21 05/17/21 sertraline 50 mg tablet 50 mg PO .prn tab 03/30/21 05/17/21 Allergies Allergy/AdvReac Type Severity Reaction Status Date / Time lavender (Lavandula Allergy Severe Swelling Verified 09/25/21 11:21 angustifolia) of Lip/Tongue/Throat lanolin Allergy Rash Verified 09/25/21 11:21 hydromorphone AdvReac Severe Rash Verified 09/25/21 11:21 queaseEase Allergy Severe Swelling Uncoded 09/25/21 11:21 of Lip/Tongue/Throat Review of Systems <Milana Conley PA-C - Last Filed: 09/25/21 21:33> Review of Systems ROS Unobtainable: All systems reviewed & are unremarkable except as noted in HPI and below Constitutional Constitutional: Denies chills, Denies fatigue, Denies fever(s), Denies frequent falls, Reports headache(s), Denies lethargy and Denies weakness Eyes Eyes: Denies change in vision, Denies eye discharge, Denies irritation and Denies loss of vision ENT Ears, Nose, Mouth, and Throat: Denies change in voice, Denies dizziness, Reports headache(s), Denies neck pain, Denies sore throat and Denies throat swelling Cardiovascular Cardiovascular: Reports chest pain, Denies irregular heart rhythm, Denies lightheadedness, Denies palpitations, Denies dyspnea, Denies dyspnea on exertion and Denies orthopnea Respiratory Respiratory: Denies cough, Denies dyspnea, Denies dyspnea on exertion and Denies wheezing Gastrointestinal Gastrointestinal: Denies abdominal pain, Denies change in bowel habits, Denies diarrhea, Reports nausea and Denies vomiting Genitourinary Genitourinary: Denies hematuria, Denies flank pain, Denies urinary incontinence and Denies urinary urgency Musculoskeletal Musculoskeletal: Denies back pain, Denies muscle weakness, Denies neck pain, Denies numbness and Denies tingling Integumentary/Breasts Skin/Breast: Denies pruritus, Denies erythema, Denies rash and Denies wounds Neurologic Neurologic: Denies behavioral changes, Denies confusion, Denies dizziness, Denies frequent falls, Reports headache(s), Denies loss of vision, Denies numbness, Denies tingling and Denies weakness Psychiatric Psychiatric: Denies anxiety, Denies behavioral changes, Denies confusion, Denies depression, Denies homicidal ideation and Denies suicidal ideation Endocrine Endocrine: Denies fatigue, Denies flushing and Denies palpitations Hematologic/Lymphatic Hematologic/Lymphatic: Denies easy bruising Allergic/Immunologic Allergic/Immunologic: Denies urticaria, Denies throat swelling and Denies wheezing Patient History <Milana Conley PA-C - Last Filed: 09/25/21 21:33> Medical History Anxiety Marinelli's esophagus Chronic insomnia Degenerative arthritis Diverticulosis GERD (gastroesophageal reflux disease) HLD (hyperlipidemia) HTN (hypertension) Impaired fasting glucose Kidney stone Morbid obesity with BMI of 50.0-59.9, adult TYLOR (obstructive sleep apnea) Status post hysteroscopy (~12/30/20) Traumatic leg injury (2015) Surgical History History of colonoscopy (08/2019) Hx of cholecystectomy (2007) Hx of tonsillectomy (1969) Social History Smoking Status: Never smoker alcohol intake: current Smoking Status: Never smoker alcohol intake frequency: a few times a month Substance Use Type: does not use Exam <Milana Conley PA-C - Last Filed: 09/25/21 21:33> Initial Vital Signs Initial Vital Signs: Vital Signs Pulse Rate 87 09/25/21 11:02 Blood Pressure 186/86 H 09/25/21 11:02 Pulse Oximetry 97 09/25/21 11:02 Const General: cooperative, healthy appearing and comfortable HENMT Head: normal to inspection Eyes General: appearance normal, both eyes and all related structures Neck Neck: normal visual inspection Chest Chest: normal inspection of the chest Resp Effort & Inspection: normal respiratory effort Auscultation: clear to auscultation bilaterally Cardio Rate: regular rate Rhythm: regular rhythm GI Inspection: normal to inspection Other: Abdomen is soft, nondistended, nontender to palpation. No CVA tenderness. General: No CVA tenderness Back/Spine/Pelvis Back: normal to inspection Skin General: no rashes or lesions noted Neuro General: patient alert, patient awake and patient oriented x3 Extrem General: normal to inspection Psych Appearance: grossly normal <Kylee Booth MD - Last Filed: 10/02/21 03:57> Initial Vital Signs Initial Vital Signs: Vital Signs Pulse Rate 87 09/25/21 11:02 Blood Pressure 186/86 H 09/25/21 11:02 Pulse Oximetry 97 09/25/21 11:02 Course <Milana Conley PA-C - Last Filed: 09/25/21 21:33> Orders Ordered: Discontinued Medications Acetaminophen (Acetaminophen 325 Mg Tablet) 975 mg PO NOW ONE Stop: 09/25/21 13:39 Last Admin: 09/25/21 13:56 Dose: 975 mg Documented by: SENIA Al Hydrox/Mg Hydrox/Simethicone 20 ml/ Lidocaine HCl 15 ml 0 ml PO NOW ONE Stop: 09/25/21 13:35 Last Admin: 09/25/21 13:54 Dose: 30 ml Documented by: SENIA Famotidine (Famotidine 20 Mg/2 Ml Vial) 20 mg IV NOW MARTHA Last Admin: 09/25/21 13:55 Dose: 20 mg Documented by: SENIA Sodium Chloride (Normal Saline 0.9%) 1,000 mls @ 1,000 mls/hr IV BOLUS ONE Stop: 09/25/21 14:37 Last Infusion: 09/25/21 16:08 Dose: 0 mls/hr Documented by: Admin: 09/25/21 13:55 Dose: 1,000 mls/hr Documented by: SENIA Ketorolac Tromethamine (Ketorolac 30 Mg/Ml Vial) 15 mg IV NOW ONE Stop: 09/25/21 13:39 Last Admin: 09/25/21 13:54 Dose: 15 mg Documented by: SENIA Metoclopramide HCl (Metoclopramide 10 Mg/2 Ml Inj) 10 mg IV NOW ONE Stop: 09/25/21 13:39 Last Admin: 09/25/21 13:55 Dose: 10 mg Documented by: SENIA Vital Signs Vital signs: Vital Signs - 8 hr 09/25/21 14:13 09/25/21 14:16 09/25/21 14:17 Pulse Rate 83 74 Respiratory Rate 20 20 Blood Pressure 171/74 H Pulse Oximetry 98 100 09/25/21 16:09 Pulse Rate 72 Respiratory Rate 18 Blood Pressure 132/69 Pulse Oximetry <Kylee Booth MD - Last Filed: 10/02/21 03:57> Orders Ordered: Discontinued Medications Acetaminophen (Acetaminophen 325 Mg Tablet) 975 mg PO NOW ONE Stop: 09/25/21 13:39 Last Admin: 09/25/21 13:56 Dose: 975 mg Documented by: SENIA Al Hydrox/Mg Hydrox/Simethicone 20 ml/ Lidocaine HCl 15 ml 0 ml PO NOW ONE Stop: 09/25/21 13:35 Last Admin: 09/25/21 13:54 Dose: 30 ml Documented by: SENIA Famotidine (Famotidine 20 Mg/2 Ml Vial) 20 mg IV NOW MARTHA Last Admin: 09/25/21 13:55 Dose: 20 mg Documented by: SENIA Sodium Chloride (Normal Saline 0.9%) 1,000 mls @ 1,000 mls/hr IV BOLUS ONE Stop: 09/25/21 14:37 Last Infusion: 09/25/21 16:08 Dose: 0 mls/hr Documented by: Admin: 09/25/21 13:55 Dose: 1,000 mls/hr Documented by: SENIA Ketorolac Tromethamine (Ketorolac 30 Mg/Ml Vial) 15 mg IV NOW ONE Stop: 09/25/21 13:39 Last Admin: 09/25/21 13:54 Dose: 15 mg Documented by: SENIA Metoclopramide HCl (Metoclopramide 10 Mg/2 Ml Inj) 10 mg IV NOW ONE Stop: 09/25/21 13:39 Last Admin: 09/25/21 13:55 Dose: 10 mg Documented by: SENIA Vital Signs Vital signs: Vital Signs - 8 hr 09/25/21 14:13 09/25/21 14:16 09/25/21 14:17 Pulse Rate 83 74 Respiratory Rate 20 20 Blood Pressure 171/74 H Pulse Oximetry 98 100 09/25/21 16:09 Pulse Rate 72 Respiratory Rate 18 Blood Pressure 132/69 Pulse Oximetry MDM - Chest Pain <Milana Conley PA-C - Last Filed: 09/25/21 21:33> Lab Data Lab results narrative: D-dimer elevated per age adjusted value. Troponin x2 negative Result diagrams: 09/25/21 11:10 09/25/21 11:10 Labs: Lab Results 09/25/21 09/25/21 09/25/21 Range/Units 11:10 11:10 11:10 WBC 7.2 (4.5-11.0) X10^3/uL RBC 4.76 (4.0-5.2) X10^6/uL Hgb 12.7 (12.0-16.0) g/dL Hct 38.4 (36-46) % MCV 80.7 (80-100) fL MCH 26.7 (26-34) PG MCHC 33.1 (30-36) % RDW 14.9 H (11.6-14.8) % Plt Count 312 (150-400) X10^3/uL Neut % (Auto) 69.2 (50-75) % Lymph % (Auto) 21.7 L (25-40) % Forest % (Auto) 6.5 (3-14) % Eos % (Auto) 1.9 L (2-4) % Baso % (Auto) 0.7 (0-2) % Neut # (Auto) 5000 (2682-1645) /uL Lymph # (Auto) 1600 (0153-2396) /uL Forest # (Auto) 500 (0-900) /uL Eos # (Auto) 100 (0-450) /uL Baso # (Auto) 0 (0-100) /uL D-Dimer 328 H (<230) ng/mL Sodium 139 (137-145) mmol/L Potassium 4.2 (3.4-5.1) mmol/L Chloride 106 (98-107) mmol/L Carbon Dioxide 26 (22-32) mmol/L BUN 14 (7-17) mg/dL Creatinine 0.81 (0.52-1.04) mg/dL Estimated GFR > 60.0 (>60) mL/min BUN/Creatinine Ratio 17.3 (6-22) Glucose 132 H (70-100) mg/dL Calcium 9.3 (8.4-10.2) mg/dL Magnesium 1.8 (1.6-2.3) mg/dL Total Bilirubin 0.6 (0.2-1.3) mg/dL AST 33 (14-36) IU/L ALT 21 (<35) IU/L Alkaline Phosphatase 84 (38-126) U/L Total Creatine Kinase 39 (30-135) U/L CK-MB (CK-2) TNP CK-MB (CK-2) Rel Index TNP Troponin I < 0.012 (0.01-0.034) ng/mL NT-Pro-B Natriuret Pep (<125) pg/mL Total Protein 7.4 (6.3-8.2) g/dL Albumin 4.2 (3.5-5.0) g/dL Globulin 3.2 (1.7-4.1) g/dL Albumin/Globulin Ratio 1.3 (1.0-2.8) Lipase 73 (23-300) U/L SARS-CoV-2 (PCR) (Negative) 09/25/21 09/25/21 09/25/21 Range/Units 11:10 11:26 15:08 WBC (4.5-11.0) X10^3/uL RBC (4.0-5.2) X10^6/uL Hgb (12.0-16.0) g/dL Hct (36-46) % MCV (80-100) fL MCH (26-34) PG MCHC (30-36) % RDW (11.6-14.8) % Plt Count (150-400) X10^3/uL Neut % (Auto) (50-75) % Lymph % (Auto) (25-40) % Forest % (Auto) (3-14) % Eos % (Auto) (2-4) % Baso % (Auto) (0-2) % Neut # (Auto) (3799-0910) /uL Lymph # (Auto) (6776-7586) /uL Forest # (Auto) (0-900) /uL Eos # (Auto) (0-450) /uL Baso # (Auto) (0-100) /uL D-Dimer (<230) ng/mL Sodium (137-145) mmol/L Potassium (3.4-5.1) mmol/L Chloride (98-107) mmol/L Carbon Dioxide (22-32) mmol/L BUN (7-17) mg/dL Creatinine (0.52-1.04) mg/dL Estimated GFR (>60) mL/min BUN/Creatinine Ratio (6-22) Glucose (70-100) mg/dL Calcium (8.4-10.2) mg/dL Magnesium (1.6-2.3) mg/dL Total Bilirubin (0.2-1.3) mg/dL AST (14-36) IU/L ALT (<35) IU/L Alkaline Phosphatase (38-126) U/L Total Creatine Kinase (30-135) U/L CK-MB (CK-2) CK-MB (CK-2) Rel Index Troponin I < 0.012 (0.01-0.034) ng/mL NT-Pro-B Natriuret Pep 111 (<125) pg/mL Total Protein (6.3-8.2) g/dL Albumin (3.5-5.0) g/dL Globulin (1.7-4.1) g/dL Albumin/Globulin Ratio (1.0-2.8) Lipase (23-300) U/L SARS-CoV-2 (PCR) Negative (Negative) Urine Dip Bedside Urine Glucose Negative Bedside Urine Bilirubin - Negative Bedside Urine Ketone - Negative Urine Specific [place] 1.015 Bedside Urine Occult Blood - Negative Bedside Urine pH 6.0 Bedside Urine Protein - Negative Bedside Urine Urobilinogen - Negative Bedside Urine Nitrite - Negative Bedside Urine Leukocytes - Negative Esterase Imaging Data Chest x-ray: Radiologist's Impression: PROCEDURE:? XR CHEST 1V ? INDICATIONS:? chest pain ? TECHNIQUE:? One view of the chest was acquired.? ? COMPARISON:? [facility], , XR CHEST 1V, 09/06/2021, 14:31. ? FINDINGS:? ? Surgical changes and devices:? None.? ? Lungs and pleura:? Lungs are clear.? No pleural effusions or pneumothorax.? ? Mediastinum:? Mediastinal contours appear normal.? Heart size is normal.? ? Bones and chest wall:? No suspicious bony lesions.? Overlying soft tissues appear unremarkable.? ? IMPRESSION:? ? 1.? No acute cardiopulmonary disease. ? ? ? Dictated by: Will Mooney M.D. on 09/25/2021 at 11:55 ? ? Approved by: Will Mooney M.D. on 09/25/2021 at 11:55 ? CT scan - chest: Radiologist's Impression: PROCEDURE:? CT ANGIO CHEST PE PROTOCOL ? INDICATIONS:? Chest pain, elevated dimer ? TECHNIQUE:? After the administration of intravenous contrast, 2 mm thick sections acquired from the pulmonary apices to the posterior costophrenic angles.? 3-dimensional maximum intensity projection (MIP) coronal and sagittal reformats were then acquired through the thorax.? For radiation dose reduction, the following was used:? automated exposure control, adjustment of mA and/or kV according to patient size.? ? COMPARISON:? None. ? FINDINGS:? Image quality:? Excellent.? ? Pulmonary arteries:? Pulmonary arteries are normal in size, and demonstrate no intraluminal filling defects to suggest central pulmonary embolism.? ? Lungs and pleura:? Lungs are clear.? No pleural effusions or pneumothorax.? Central and peripheral airways are patent.? ? Mediastinum:? Heart size is normal, without pericardial effusion.? No mediastinal or hilar adenopathy.? Thoracic aorta is normal in caliber and enhancement.? Esophagus is normal in caliber, with a small hiatal hernia.? ? Bones and chest wall:? No suspicious bony lesions.? Degenerative disc disease throughout thoracic spine is seen.? No acute vertebral body compression fracture.? Thyroid gland is within normal limits.? No axillary or supraclavicular adenopathy.? ? Abdomen:? Visualized upper abdominal solid organs appear normal in the early arterial phase of enhancement.? ? IMPRESSION:? 1. No pulmonary embolism.? No thoracic aortic aneurysm or dissection. 2. Bilateral lungs are clear. 3. No mediastinal or hilar lymphadenopathy.? Small hiatal hernia.? ? ? Dictated by: Mane Rolle M.D. on 09/25/2021 at 14:30 ? ? Approved by: Mane Rolle M.D. on 09/25/2021 at 14:35 ? ECG Data Interpretation: Normal sinus rhythm, no acute ST-T changes. No QT prolongation. ND interval normal MDM Narrative Medical decision making narrative: 61-year-old female with past medical history hypertension, hypercholesterolemia presents to the ED with 2 days of left-sided chest pressure. Concern for ACS versus acute heart failure exacerbation versus arrhythmia versus versus PE versus GERD vs primary headache. Will order EKG, chest x-ray, labs, troponin, BNP, D-dimer. Will treat headache with Tylenol, ketorolac, Reglan, IV fluids. Will treat with Pepcid AC, GI cocktail. Will reassess. Labs within normal limits. Trop x2 negative. Dimer elevsted, CTPE neg. Will discharge patient home with ED return precautions, PCP follow-up. <Kylee Booth MD - Last Filed: 10/02/21 03:57> Lab Data Labs: Lab Results 09/25/21 09/25/21 09/25/21 Range/Units 11:10 11:10 11:10 WBC 7.2 (4.5-11.0) X10^3/uL RBC 4.76 (4.0-5.2) X10^6/uL Hgb 12.7 (12.0-16.0) g/dL Hct 38.4 (36-46) % MCV 80.7 (80-100) fL MCH 26.7 (26-34) PG MCHC 33.1 (30-36) % RDW 14.9 H (11.6-14.8) % Plt Count 312 (150-400) X10^3/uL Neut % (Auto) 69.2 (50-75) % Lymph % (Auto) 21.7 L (25-40) % Forest % (Auto) 6.5 (3-14) % Eos % (Auto) 1.9 L (2-4) % Baso % (Auto) 0.7 (0-2) % Neut # (Auto) 5000 (3405-3007) /uL Lymph # (Auto) 1600 (0005-6638) /uL Forest # (Auto) 500 (0-900) /uL Eos # (Auto) 100 (0-450) /uL Baso # (Auto) 0 (0-100) /uL D-Dimer 328 H (<230) ng/mL Sodium 139 (137-145) mmol/L Potassium 4.2 (3.4-5.1) mmol/L Chloride 106 (98-107) mmol/L Carbon Dioxide 26 (22-32) mmol/L BUN 14 (7-17) mg/dL Creatinine 0.81 (0.52-1.04) mg/dL Estimated GFR > 60.0 (>60) mL/min BUN/Creatinine Ratio 17.3 (6-22) Glucose 132 H (70-100) mg/dL Calcium 9.3 (8.4-10.2) mg/dL Magnesium 1.8 (1.6-2.3) mg/dL Total Bilirubin 0.6 (0.2-1.3) mg/dL AST 33 (14-36) IU/L ALT 21 (<35) IU/L Alkaline Phosphatase 84 (38-126) U/L Total Creatine Kinase 39 (30-135) U/L CK-MB (CK-2) TNP CK-MB (CK-2) Rel Index TNP Troponin I < 0.012 (0.01-0.034) ng/mL NT-Pro-B Natriuret Pep (<125) pg/mL Total Protein 7.4 (6.3-8.2) g/dL Albumin 4.2 (3.5-5.0) g/dL Globulin 3.2 (1.7-4.1) g/dL Albumin/Globulin Ratio 1.3 (1.0-2.8) Lipase 73 (23-300) U/L SARS-CoV-2 (PCR) (Negative) 09/25/21 09/25/21 09/25/21 Range/Units 11:10 11:26 15:08 WBC (4.5-11.0) X10^3/uL RBC (4.0-5.2) X10^6/uL Hgb (12.0-16.0) g/dL Hct (36-46) % MCV (80-100) fL MCH (26-34) PG MCHC (30-36) % RDW (11.6-14.8) % Plt Count (150-400) X10^3/uL Neut % (Auto) (50-75) % Lymph % (Auto) (25-40) % [place] % (Auto) (3-14) % Eos % (Auto) (2-4) % Baso % (Auto) (0-2) % Neut # (Auto) (2767-7575) /uL Lymph # (Auto) (1254-5729) /uL Forest # (Auto) (0-900) /uL Eos # (Auto) (0-450) /uL Baso # (Auto) (0-100) /uL D-Dimer (<230) ng/mL Sodium (137-145) mmol/L Potassium (3.4-5.1) mmol/L Chloride (98-107) mmol/L Carbon Dioxide (22-32) mmol/L BUN (7-17) mg/dL Creatinine (0.52-1.04) mg/dL Estimated GFR (>60) mL/min BUN/Creatinine Ratio (6-22) Glucose (70-100) mg/dL Calcium (8.4-10.2) mg/dL Magnesium (1.6-2.3) mg/dL Total Bilirubin (0.2-1.3) mg/dL AST (14-36) IU/L ALT (<35) IU/L Alkaline Phosphatase (38-126) U/L Total Creatine Kinase (30-135) U/L CK-MB (CK-2) CK-MB (CK-2) Rel Index Troponin I < 0.012 (0.01-0.034) ng/mL NT-Pro-B Natriuret Pep 111 (<125) pg/mL Total Protein (6.3-8.2) g/dL Albumin (3.5-5.0) g/dL Globulin (1.7-4.1) g/dL Albumin/Globulin Ratio (1.0-2.8) Lipase (23-300) U/L SARS-CoV-2 (PCR) Negative (Negative) Urine Dip Bedside Urine Glucose Negative Bedside Urine Bilirubin - Negative Bedside Urine Ketone - Negative Urine Specific [place] 1.015 Bedside Urine Occult Blood - Negative Bedside Urine pH 6.0 Bedside Urine Protein - Negative Bedside Urine Urobilinogen - Negative Bedside Urine Nitrite - Negative Bedside Urine Leukocytes - Negative Esterase Discharge Plan Departure Patient Disposition: Home Clinical Impression: Palpitations Instructions: DI for Chest Pain Activity Restrictions/Additional Instructions: You were evaluated in the ED today for palpitations, chest pain. Your workup including EKG, chest x-ray, labs, CT chest were normal. It is possible that her symptoms are related to acid reflux. You may continue to take Nexium, Pepcid AC for acid reflux. Follow-up with your PCP regarding your hypertension. Please return to the ED if you have worsening symptoms including chest pain, shortness of breath. Prescriptions: No Action cyclobenzaprine 10 mg tablet 10 mg PO .prn 0RF benazepril 10 mg tablet 10 mg PO DAILY 0RF gabapentin 100 mg capsule 100 mg PO DAILY 0RF rabeprazole 20 mg tablet,delayed release (DR/EC) 20 mg PO DAILY 0RF Label Comments: 3 months ago was last dose zolpidem 5 mg tablet 5 mg PO BEDTIME PRN (Reason: Sleep) 0RF sertraline 50 mg tablet 50 mg PO .prn 0RF Referrals: Kathy Trinidad MD [Primary Care Provider] - <Kylee Booth MD - Last Filed: 10/02/21 03:57> Cosign ED Attending Cosignature Attestation: I was immediately available in the department for consultation throughout this patient's visit. I agree with documentation as above. Kylee Booth MD
[2021-09-25 13:44] LABS: D Dimer 328 ng/mL (<230)
--- NOTE | 2021-09-25 13:53 | DI.CT.S_ITS ---
PROCEDURE: CT ANGIO CHEST PE PROTOCOL INDICATIONS: Chest pain, elevated dimer TECHNIQUE: After the administration of intravenous contrast, 2 mm thick sections acquired from the pulmonary apices to the posterior costophrenic angles. 3-dimensional maximum intensity projection (MIP) coronal and sagittal reformats were then acquired through the thorax. For radiation dose reduction, the following was used: automated exposure control, adjustment of mA and/or kV according to patient size. COMPARISON: None. FINDINGS: Image quality: Excellent. Pulmonary arteries: Pulmonary arteries are normal in size, and demonstrate no intraluminal filling defects to suggest central pulmonary embolism. Lungs and pleura: Lungs are clear. No pleural effusions or pneumothorax. Central and peripheral airways are patent. Mediastinum: Heart size is normal, without pericardial effusion. No mediastinal or hilar adenopathy. Thoracic aorta is normal in caliber and enhancement. Esophagus is normal in caliber, with a small hiatal hernia. Bones and chest wall: No suspicious bony lesions. Degenerative disc disease throughout thoracic spine is seen. No acute vertebral body compression fracture. Thyroid gland is within normal limits. No axillary or supraclavicular adenopathy. Abdomen: Visualized upper abdominal solid organs appear normal in the early arterial phase of enhancement. IMPRESSION: 1. No pulmonary embolism. No thoracic aortic aneurysm or dissection. 2. Bilateral lungs are clear. 3. No mediastinal or hilar lymphadenopathy. Small hiatal hernia. Dictated by: Mane Rolle M.D. on 09/25/2021 at 14:30 Approved by: Mane Rolle M.D. on 09/25/2021 at 14:35
[2021-09-25] MEDS: MAG HYDROX/ALUMINUM/SIMETH SUS 20 ML, LIDOCAINE VISCOUS 2% 15 ML PO (13:54)
[2021-09-25] MEDS: KETOROLAC 30 MG/ML VIAL 15 MG IV (13:54)
[2021-09-25] MEDS: SODIUM CHLORIDE 0.9% 1,000 ML 1000 ML IV (13:55)
[2021-09-25] MEDS: METOCLOPRAMIDE 10 MG/2 ML INJ IV (13:55)
[2021-09-25] MEDS: FAMOTIDINE 20 MG/2 ML VIAL IV (13:55)
[2021-09-25 13:56] LABS: NT-proBNP (BNP-Adult 18+) 111 pg/mL (<125)
[2021-09-25] MEDS: ACETAMINOPHEN 325 MG TABLET 975 MG PO (13:56)
[2021-09-25 15:48] LABS: Troponin I < 0.012 ng/mL (0.01-0.034)
== END 2021-09-25 16:10 | disposition home or self-care (01) ==
PROVIDERS: Emergency Medicine; Emergency Provider Student in an Organized Health Care Education/Training Program; Family Provider Internal Medicine; PCP Internal Medicine
DX: R07.9 Chest pain, unspecified (principal); R00.2 Palpitations; Z20.822 Contact with and (suspected) exposure to COVID-19
CPT/HCPCS: 36415; 71045; 71275; 80053; 81003; 82550; 83690; 83735; 83880; 84484; 85025; 85379; 87635; 93005; 96361; 96374; 96375; 99284; C9803; J1885; J2765; Q9967

== ENCOUNTER 2021-10-23 11:00 | Outpatient (RCR) | payer OTHER, SELFPAY ==
--- NOTE | 2021-08-31 16:17 | PT.OIE ---
Current Diagnoses Pain in right leg (08/31/21) Past Medical History (Last Reviewed 05/17/21 @ 20:34 by Adriana Maria PA-C) Anxiety Marinelli's esophagus Chronic insomnia Degenerative arthritis Diverticulosis GERD (gastroesophageal reflux disease) History of colonoscopy (08/2019) HLD (hyperlipidemia) HTN (hypertension) Hx of cholecystectomy (2007) Hx of tonsillectomy (1969) Impaired fasting glucose Kidney stone Morbid obesity with BMI of 50.0-59.9, adult TYLOR (obstructive sleep apnea) Status post hysteroscopy (~12/30/20) Traumatic leg injury (2015) Past Surgical History (Last Reviewed 05/17/21 @ 20:34 by Adriana Maria PA-C) History of colonoscopy (08/2019) Hx of cholecystectomy (2007) Hx of tonsillectomy (1969) Visit Care Team Role Provider Type Kathy Trinidad MD Attending Provider Physician Family Provider Primary Care Provider Referring Provider Specialty: Internal Medicine Address: [address] [place] [address] Email: [email or web address] Physical Therapy Initial Evaluation PT-OP-A Visit Information Start: 08/31/21 11:47 Freq: Status: Active Protocol: Document 08/31/21 11:25 DCW (Rec: 08/31/21 11:56 DCW [id number]) Out-Patient Physical Therapy Visit Information Visit Information Visit Type Initial Evaluation Visit Start Time 11:25 Visit Stop Time 11:45 Total Visit Minutes 20 Visit Number 1 Number of WAREHOUSE TEAM MEMBER Visits 0 Evaluation Information Evaluation Date 08/31/21 PT-OP-B Current Condition Start: 08/31/21 11:47 Freq: Status: Active Protocol: Document 08/31/21 11:25 DCW (Rec: 08/31/21 11:56 DC [id number]) Current Condition History of Current Condition Onset Date May 2016 Current Complaints Right knee pain History of Current Condition Pt is a 61 year old female presenting with a five year history of right knee pain. Pt reports that she had a slip and fall onto her right side in May 2016. Admits there is disagreement between an orthopedic surgeon and her previous PCP about whether or not there was a spiral fracture in her leg, so she is unsure what actually happened . Notes that there was damage to the muscles,and this resulted in a nerve getting pinched as it runs through her knee. If she does much activity, or drives for too long, her leg flairs up and she experiences tremendous pain. In August 2019, she began doing Aquatic therapy, which was totally the answer to her pain, she has been able to do exercises and is no longer in pain constantly. Reports she is at the pool 3- 4x/week, and has been very compliant with her HEP, however is now just doing more reps of the same exercises as she improves. At this time, she is interested in 1-2 aquatic appointments just to receive instruction on a more challenging HEP that she can then perform independently at the pool. Treatment Goals Patient/Caregiver Goals New HEP PT-OP-C Subjective Start: 08/31/21 11:47 Freq: Status: Active Protocol: Document 08/31/21 11:25 DCW (Rec: 08/31/21 11:56 DCW [id number]) OP-PT Subjective Patient Comments Patient Comments On good days, it doesn't bother me at all. On bad days, it bothers me a whole heck of a lot. Patient Questionnaires Lower Extremity Functional Scale LEFS Score 42/80 = 52.5 LEFS Impairment 40 to 59% Impaired (Score 32- 47) OP-PT Pain Assessment Pain Assessment Grid Paper Pain Assessment Grid Completed Yes Location Right Knee Intensity 7 Scale Used Numeric (0 - 10) PT-OP-E Functional Tests Start: 08/31/21 11:47 Freq: Status: Active Protocol: Document 08/31/21 11:25 DCW (Rec: 08/31/21 11:59 DCW [id number]) Functional Tests 2 Minute Walk Test Distance 372 Device Used None Comments 3.1 ft/sec PT-OP-M Strength Start: 08/31/21 11:47 Freq: Status: Active Protocol: Document 08/31/21 11:25 DCW (Rec: 08/31/21 11:59 DCW [id number]) Hip Strength Hip Manual Muscle Testing Right Flexion (L2) 4+ Good+ Abduction 4+ Good+ Adduction 4+ Good+ Left Flexion (L2) 4+ Good+ Abduction 4+ Good+ Adduction 4+ Good+ Knee Strength Knee Manual Muscle Testing Right Flexion (S2) 4+ Good+ Extension (L3) 4+ Good+ Left Flexion (S2) 4+ Good+ Extension (L3) 4+ Good+ Ankle/Foot Strength Ankle and Foot Manual Muscle Testing Right Dorsiflexion (L4) 4 Good Plantarflexion (S1) 4 Good Left Dorsiflexion (L4) 4 Good Plantarflexion (S1) 4 Good PT-OP-T Assessment and Plan Start: 08/31/21 11:47 Freq: Status: Active Protocol: Document 08/31/21 11:25 DCW (Rec: 08/31/21 16:17 DCW [id number]) Physical Therapy Assessment Rehab Potential Rehabilitation Potential Excellent Evaluation Complexity Number of Personal Factors/Comorbidities 1-2 Number of Body Systems Impaired 1-2 Clinical Presentation at Evaluation Stable Impairments Impairments Activity Tolerance,Pain Goals One Impairment Pt requires a more advance aquatic pool HEP Short Term Goal (STG) Pt to exhibit independence with increased difficulty HEP STG Duration 10/09/21 Assessment Summary Assessment Pt attended physical therapy today in hopes of getting two aquatic therapy visits in order to advance her regular aqua exercise program that she first obtained when beginning aquatic therapy two years ago . Pt has been performing the same activities, and is looking for advancing to a program with increased difficulty. Appropriate for pt to attend 1-2 aquatic therapy sessions in order to implement a new more advanced HEP safely, with Physical Therapy Plan Frequency and Duration Frequency of Treatment 3 visits/6 weeks Duration of Treatment 6 weeks Plan of Care Start Date 08/31/21 Plan of Care End Date 10/12/21 Therapeutic Interventions Therapeutic Interventions Aquatic Therapy Next Visit Focus/Plan Next Visit Plan Aquatic ttherapy, addition if increased difficulty HEP
--- NOTE | 2021-08-31 16:18 | PT.OPPOC ---
Physical, Occupational & Speech Therapy At [facility] Current Diagnoses Pain in right leg (08/31/21) Visit Care Team Role Provider Type Kathy Trinidad MD Attending Provider Physician Family Provider Primary Care Provider Referring Provider Specialty: Internal Medicine Address: [address] [place] [address], [id number] Email: [email or web address] Plan Of Care PT-OP-T Assessment and Plan Start: 08/31/21 11:47 Freq: Status: Active Protocol: Document 08/31/21 11:25 DCW (Rec: 08/31/21 16:17 DCW [id number]) Physical Therapy Assessment Rehab Potential Rehabilitation Potential Excellent Evaluation Complexity Number of Personal Factors/Comorbidities 1-2 Number of Body Systems Impaired 1-2 Clinical Presentation at Evaluation Stable Impairments Impairments Activity Tolerance,Pain Goals One Impairment Pt requires a more advance aquatic pool HEP Short Term Goal (STG) Pt to exhibit independence with increased difficulty HEP STG Duration 10/09/21 Assessment Summary Assessment Pt attended physical therapy today in hopes of getting two aquatic therapy visits in order to advance her regular aqua exercise program that she first obtained when beginning aquatic therapy two years ago . Pt has been performing the same activities, and is looking for advancing to a program with increased difficulty. Appropriate for pt to attend 1-2 aquatic therapy sessions in order to implement a new more advanced HEP safely, with Physical Therapy Plan Frequency and Duration Frequency of Treatment 3 visits/6 weeks Duration of Treatment 6 weeks Plan of Care Start Date 08/31/21 Plan of Care End Date 10/12/21 Therapeutic Interventions Therapeutic Interventions Aquatic Therapy Next Visit Focus/Plan Next Visit Plan Aquatic ttherapy, addition if increased difficulty HEP Plan of Care Dates Plan of Care Start Date 08/31/21 Plan of Care End Date 10/12/21 Electronically Signed by: Vance Peace, PT 08/31/21 [id number] Please Sign and Return: I have reviewed this Plan of Care and certify that the skilled therapy services above are required to meet the patient?s needs. Physician Signature Date Printed Name and Credentials Clinical Instructor Signature Printed Name and Credentials
--- NOTE | 2021-09-08 15:24 | PT.OTN ---
Current Diagnoses Pain in right leg (08/31/21) Physical Therapy Treatment Note PT-OP-A Visit Information Start: 08/31/21 11:47 Freq: Status: Active Protocol: Document 09/08/21 15:02 AMANDA (Rec: 09/08/21 15:23 LJ [id number]) Out-Patient Physical Therapy Visit Information Visit Information Visit Type Aquatic Treatment Note Visit Start Time 11:00 Visit Stop Time 11:45 Total Visit Minutes 45 Visit Number 2 Number of HONEY BLENDER Visits 1 PT-OP-B Current Condition Start: 08/31/21 11:47 Freq: Status: Active Protocol: Document 08/31/21 11:25 DCW (Rec: 08/31/21 11:56 DCW [id number]) Current Condition History of Current Condition Onset Date May 2016 Current Complaints Right knee pain History of Current Condition Pt is a 61 year old female presenting with a five year history of right knee pain. Pt reports that she had a slip and fall onto her right side in May 2016. Admits there is disagreement between an orthopedic surgeon and her previous PCP about whether or not there was a spiral fracture in her leg, so she is unsure what actually happened . Notes that there was damage to the muscles,and this resulted in a nerve getting pinched as it runs through her knee. If she does much activity, or drives for too long, her leg flairs up and she experiences tremendous pain. In August 2019, she began doing Aquatic therapy, which was totally the answer to her pain, she has been able to do exercises and is no longer in pain constantly. Reports she is at the pool 3- 4x/week, and has been very compliant with her HEP, however is now just doing more reps of the same exercises as she improves. At this time, she is interested in 1-2 aquatic appointments just to receive instruction on a more challenging HEP that she can then perform independently at the pool. Treatment Goals Patient/Caregiver Goals New HEP PT-OP-C Subjective Start: 08/31/21 11:47 Freq: Status: Active Protocol: Document 09/08/21 15:02 AMANDA (Rec: 09/08/21 15:23 LJ [id number]) OP-PT Subjective Patient Comments Patient Comments Pt states she has been doing the same aquatic exercises for 2 years and it has made a lot of difference with reducing pain. She is coming to AT to get exercises to progress her routine. PT-OP-E Functional Tests Start: 08/31/21 11:47 Freq: Status: Active Protocol: Document 08/31/21 11:25 DCW (Rec: 08/31/21 11:59 DCW [id number]) Functional Tests 2 Minute Walk Test Distance 372 Device Used None Comments 3.1 ft/sec PT-OP-M Strength Start: 08/31/21 11:47 Freq: Status: Active Protocol: Document 08/31/21 11:25 DCW (Rec: 08/31/21 11:59 DCW [id number]) Hip Strength Hip Manual Muscle Testing Right Flexion (L2) 4+ Good+ Abduction 4+ Good+ Adduction 4+ Good+ Left Flexion (L2) 4+ Good+ Abduction 4+ Good+ Adduction 4+ Good+ Knee Strength Knee Manual Muscle Testing Right Flexion (S2) 4+ Good+ Extension (L3) 4+ Good+ Left Flexion (S2) 4+ Good+ Extension (L3) 4+ Good+ Ankle/Foot Strength Ankle and Foot Manual Muscle Testing Right Dorsiflexion (L4) 4 Good Plantarflexion (S1) 4 Good Left Dorsiflexion (L4) 4 Good Plantarflexion (S1) 4 Good PT-OP-S Aquatic Treatment Start: 08/31/21 11:47 Freq: Status: Active Protocol: Document 09/08/21 15:02 LJ (Rec: 09/08/21 15:23 LJ [id number]) Aquatics Treatment Pool Entry/Exit Pool Entry/Exit Method Stairs Assistance Independent Water Walking Lunge Walk Water Level Waist Level Walking Equipment Ankle Weight- 5.0# Level of Assistance Verbal Cues [place] March Water Level Waist Level Walking Equipment Ankle Weight- 5.0# Level of Assistance Verbal Cues Marching Water Level Waist Level Walking Equipment Ankle Weight- 5.0# Level of Assistance Verbal Cues Comments reaching to opp side for oblique involvement walking fw/bk/s-s Water Level Waist Level Walking Equipment Ankle Weight- 5.0# Level of Assistance Verbal Cues Lower Extremity Exercises squat jump Body Position Standing Water Level Chest Level Equipment Ankle Weight- 5.0# Reps/Duration [address] hip Details at wall Body Position Standing Water Level Chest Level Equipment Ankle Weight- 5.0# Reps/Duration 30 each standing reverse bicycle Details bilateral Equipment Ankle Weight- 5.0# Reps/Duration 30 Comments at wall SL jump Details bilateral Equipment Ankle Weight- 5.0# Reps/Duration 30 Comments other leg held in 90/90 flexion corner bicycle Body Position Supine Equipment Ankle Weight- 5.0# Reps/Duration 30x Comments modified supine rocking heel to toe Body Position Standing Equipment Ankle Weight- 5.0# Reps/Duration 30x toe raises Body Position Standing Equipment Ankle Weight- 5.0# Reps/Duration 30x toe jumps Body Position Standing Water Level Chest Level Equipment Ankle Weight- 5.0# Reps/Duration 30x hacky sac Body Position Standing Water Level Chest Level Equipment Ankle Weight- 5.0# Reps/Duration 30x HS curls Details deep water Body Position Standing Water Level Neck Level Equipment Large Noodle Reps/Duration 30x Comments personal noodle behind back under arms sit kicks Details deep water Body Position Sitting Water Level Neck Level Equipment Large Noodle Reps/Duration 30x Comments personal noodle behind back under arms Balance seated on noodle Equipment lg noodle Reps/Duration 4 min Comments toes on bottom, toes off bottom, BS forward/bk PT-OP-T Assessment and Plan Start: 08/31/21 11:47 Freq: Status: Active Protocol: Document 09/08/21 15:02 AMANDA (Rec: 09/08/21 15:23 [id number]) Physical Therapy Assessment Rehab Potential Rehabilitation Potential Excellent Evaluation Complexity Number of Personal Factors/Comorbidities 1-2 Number of Body Systems Impaired 1-2 Clinical Presentation at Evaluation Stable Impairments Impairments Activity Tolerance,Pain Goals One Impairment Pt requires a more advance aquatic pool HEP Short Term Goal (STG) Pt to exhibit independence with increased difficulty HEP STG Duration 10/09/21 Assessment Summary Assessment Pt demonstrated her HEP and we built on that with addition of LE wts and increase in reps and effort. Pt will exercise with new HEP and determine if progression of exercises is painfree and effective. She is highly motivated and attends the pool several times a week. Physical Therapy Plan Frequency and Duration Frequency of Treatment 3 visits/6 weeks Duration of Treatment 6 weeks Plan of Care Start Date 08/31/21 Plan of Care End Date 10/12/21 Therapeutic Interventions Therapeutic Interventions Aquatic Therapy Next Visit Focus/Plan Next Visit Plan Assess new HEP and adjust as needed
--- NOTE | 2021-10-23 14:57 | PT.OTN ---
Current Diagnoses Pain in right leg (10/23/21) Physical Therapy Treatment Note PT-OP-A Visit Information Start: 08/31/21 11:47 Freq: Status: Active Protocol: Document 10/23/21 14:40 AMANDA (Rec: 10/23/21 14:57 LJ [id number]) Out-Patient Physical Therapy Visit Information Visit Information Visit Type Aquatic Treatment Note Visit Start Time 11:00 Visit Stop Time 11:45 Total Visit Minutes 45 Visit Number 3 Number of DIRECTOR OF PHYSIOTHERAPY SERVICES Visits 2 PT-OP-B Current Condition Start: 08/31/21 11:47 Freq: Status: Active Protocol: Document 08/31/21 11:25 DCW (Rec: 08/31/21 11:56 DCW [id number]) Current Condition History of Current Condition Onset Date May 2016 Current Complaints Right knee pain History of Current Condition Pt is a 61 year old female presenting with a five year history of right knee pain. Pt reports that she had a slip and fall onto her right side in May 2016. Admits there is disagreement between an orthopedic surgeon and her previous PCP about whether or not there was a spiral fracture in her leg, so she is unsure what actually happened . Notes that there was damage to the muscles,and this resulted in a nerve getting pinched as it runs through her knee. If she does much activity, or drives for too long, her leg flairs up and she experiences tremendous pain. In August 2019, she began doing Aquatic therapy, which was totally the answer to her pain, she has been able to do exercises and is no longer in pain constantly. Reports she is at the pool 3- 4x/week, and has been very compliant with her HEP, however is now just doing more reps of the same exercises as she improves. At this time, she is interested in 1-2 aquatic appointments just to receive instruction on a more challenging HEP that she can then perform independently at the pool. Treatment Goals Patient/Caregiver Goals New HEP PT-OP-C Subjective Start: 08/31/21 11:47 Freq: Status: Active Protocol: Document 10/23/21 14:40 AMANDA (Rec: 10/23/21 14:57 LJ [id number]) OP-PT Subjective Patient Comments Patient Comments Pt states she has not had pain in her knees since she began coming to the pool. One time she exercises with #5 ankle wts and stated she was sore afterwards. She does not remember the exercises she did during the previous session. Patient Questionnaires Lower Extremity Functional Scale LEFS Score 42/80 = 52.5 LEFS Impairment 40 to 59% Impaired (Score 32- 47) PT-OP-E Functional Tests Start: 08/31/21 11:47 Freq: Status: Active Protocol: Document 08/31/21 11:25 DCW (Rec: 08/31/21 11:59 DCW [id number]) Functional Tests 2 Minute Walk Test Distance 372 Device Used None Comments 3.1 ft/sec PT-OP-M Strength Start: 08/31/21 11:47 Freq: Status: Active Protocol: Document 08/31/21 11:25 DCW (Rec: 08/31/21 11:59 DCW [id number]) Hip Strength Hip Manual Muscle Testing Right Flexion (L2) 4+ Good+ Abduction 4+ Good+ Adduction 4+ Good+ Left Flexion (L2) 4+ Good+ Abduction 4+ Good+ Adduction 4+ Good+ Knee Strength Knee Manual Muscle Testing Right Flexion (S2) 4+ Good+ Extension (L3) 4+ Good+ Left Flexion (S2) 4+ Good+ Extension (L3) 4+ Good+ Ankle/Foot Strength Ankle and Foot Manual Muscle Testing Right Dorsiflexion (L4) 4 Good Plantarflexion (S1) 4 Good Left Dorsiflexion (L4) 4 Good Plantarflexion (S1) 4 Good PT-OP-S Aquatic Treatment Start: 08/31/21 11:47 Freq: Status: Active Protocol: Document 10/23/21 14:40 AMANDA (Rec: 10/23/21 14:57 LJ [id number]) Aquatics Treatment Water Walking Lunge Walk Water Level Waist Level Walking Equipment Ankle Floats [place] March Water Level Waist Level Walking Equipment Ankle Floats Marching Water Level Waist Level Walking Equipment Ankle Floats Level of Assistance Verbal Cues Comments reaching to opp side for oblique involvement walking fw/bk/s-s Water Level Waist Level Walking Equipment Ankle Floats Lower Extremity Exercises squat jump Body Position Standing Water Level Chest Level Reps/Duration [address] hip Details at wall Body Position Standing Water Level Chest Level Reps/Duration 30 each HS curls Details deep water Body Position Standing Water Level Neck Level Equipment Large Noodle Reps/Duration 30x Comments personal noodle behind back under arms sit kicks Details deep water Body Position Sitting Water Level Neck Level Equipment Large Noodle Reps/Duration 30x Comments personal noodle behind back under arms Upper Extremity Exercises fl/ex/ab/ad/hab/had Body Position Standing Water Level Chest Level Equipment UE paddles Reps/Duration 15 ea Comments pt states too easy Spinal Exercises Buoy pulldown Details braced at wall Body Position Sitting Water Level Chest Level Equipment noodle Reps/Duration 30 Comments forward/ side/side Ware Activities Ware Activities Bicycle,Cross Country,Running, Hip Abduction/Adduction,Sit Kicks Other Activities supine crunches DLS 5 x 30/30 intervals with above activities Equipment noodle Comments pt not very comfortable in deep water. Had difficulty with crunches d/t LEs floating PT-OP-T Assessment and Plan Start: 08/31/21 11:47 Freq: Status: Active Protocol: Document 10/23/21 14:40 AMANDA (Rec: 10/23/21 14:57 AMANDA [id number]) Physical Therapy Assessment Rehab Potential Rehabilitation Potential Excellent Evaluation Complexity Number of Personal Factors/Comorbidities 1-2 Number of Body Systems Impaired 1-2 Clinical Presentation at Evaluation Stable Impairments Impairments Activity Tolerance,Pain Goals One Impairment Pt requires a more advance aquatic pool HEP Short Term Goal (STG) Pt to exhibit independence with increased difficulty HEP STG Duration 10/09/21 Assessment Summary Assessment Pt stating all exercises too easy other than walking with ankle floats. Advised pt to increase effort and speed with all exercises in deep water and UE exercises in shallow. Next session increase resistance using ankle fins and hand bessl. Physical Therapy Plan Frequency and Duration Frequency of Treatment 3 visits/6 weeks Duration of Treatment 6 weeks Plan of Care Start Date 08/31/21 Plan of Care End Date 10/12/21 Therapeutic Interventions Therapeutic Interventions Aquatic Therapy Next Visit Focus/Plan Next Visit Plan Assess new HEP and adjust as needed
--- NOTE | 2022-06-04 11:56 | PT.OPDS ---
Current Diagnoses Pain in right leg (10/23/21) Visit Care Team Role Provider Type Kathy Trinidad MD Attending Provider Physician Family Provider Primary Care Provider Referring Provider Specialty: Internal Medicine Address: [address] [place] [address], [id number] Email: [email or web address] Visit Number Visit Number 3 Discharge Summary PT-OP-B Current Condition Start: 08/31/21 11:47 Freq: Status: Active Protocol: Document 08/31/21 11:25 DCW (Rec: 08/31/21 11:56 DCW [id number]) Current Condition History of Current Condition Onset Date May 2016 Current Complaints Right knee pain History of Current Condition Pt is a 61 year old female presenting with a five year history of right knee pain. Pt reports that she had a slip and fall onto her right side in May 2016. Admits there is disagreement between an orthopedic surgeon and her previous PCP about whether or not there was a spiral fracture in her leg, so she is unsure what actually happened . Notes that there was damage to the muscles,and this resulted in a nerve getting pinched as it runs through her knee. If she does much activity, or drives for too long, her leg flairs up and she experiences tremendous pain. In August 2019, she began doing Aquatic therapy, which was totally the answer to her pain, she has been able to do exercises and is no longer in pain constantly. Reports she is at the pool 3- 4x/week, and has been very compliant with her HEP, however is now just doing more reps of the same exercises as she improves. At this time, she is interested in 1-2 aquatic appointments just to receive instruction on a more challenging HEP that she can then perform independently at the pool. Treatment Goals Patient/Caregiver Goals New HEP PT-OP-C Subjective Start: 08/31/21 11:47 Freq: Status: Active Protocol: Document 10/23/21 14:40 LJ (Rec: 10/23/21 14:57 LJ [id number]) OP-PT Subjective Patient Comments Patient Comments Pt states she has not had pain in her knees since she began coming to the pool. One time she exercises with #5 ankle wts and stated she was sore afterwards. She does not remember the exercises she did during the previous session. Patient Questionnaires Lower Extremity Functional Scale LEFS Score 42/80 = 52.5 LEFS Impairment 40 to 59% Impaired (Score 32- 47) PT-OP-E Functional Tests Start: 08/31/21 11:47 Freq: Status: Active Protocol: Document 08/31/21 11:25 DCW (Rec: 08/31/21 11:59 DCW [id number]) Functional Tests 2 Minute Walk Test Distance 372 Device Used None Comments 3.1 ft/sec PT-OP-M Strength Start: 08/31/21 11:47 Freq: Status: Active Protocol: Document 08/31/21 11:25 DCW (Rec: 08/31/21 11:59 DCW [id number]) Hip Strength Hip Manual Muscle Testing Right Flexion (L2) 4+ Good+ Abduction 4+ Good+ Adduction 4+ Good+ Left Flexion (L2) 4+ Good+ Abduction 4+ Good+ Adduction 4+ Good+ Knee Strength Knee Manual Muscle Testing Right Flexion (S2) 4+ Good+ Extension (L3) 4+ Good+ Left Flexion (S2) 4+ Good+ Extension (L3) 4+ Good+ Ankle/Foot Strength Ankle and Foot Manual Muscle Testing Right Dorsiflexion (L4) 4 Good Plantarflexion (S1) 4 Good Left Dorsiflexion (L4) 4 Good Plantarflexion (S1) 4 Good PT-OP-T Assessment and Plan Start: 08/31/21 11:47 Freq: Status: Active Protocol: Document 06/04/22 11:56 DCW (Rec: 06/04/22 11:56 DCW [id number]) Physical Therapy Assessment Assessment Summary Assessment Pt has not been seen in seven months. Will discharge at this time. Pt will require a new referral in order to return to skilled therapy. Physical Therapy Plan Discharge Physical Therapy Discharge Reasons No Longer Attending PT Next Visit Focus/Plan Next Note Type Discharge Summary
== END 2022-06-05 11:53 | disposition home or self-care (01) ==
LOC: PHYS 11:00
PROVIDERS: Family Provider Internal Medicine; PCP Internal Medicine; Referring Provider Internal Medicine; Visit Provider Internal Medicine
DX: M79.604 Pain in right leg (principal)
CPT/HCPCS: 97113; 97161

== ENCOUNTER → 2022-10-31 14:33 | Outpatient (CLI) | payer OTHER, SELFPAY ==
[2022-10-31 15:08] LABS: Add Manual Diff / Slide Review NO; Basophils Absolute Auto 100 /uL (0-100); Basophils Percent Auto 0.8 % (0-2); Eosinophils Absolute Auto 200 /uL (0-450); Eosinophils Percent Auto 1.9 % (2-4); Hematocrit 40.7 % (36-46); Hemoglobin 13.8 g/dL (12.0-16.0); Lymphocytes Absolute Auto 2300 /uL (1100-4500); Lymphocytes Percent Auto 26.4 % (25-40); Mean Corpuscular HGB Conc 33.9 % (30-36); Mean Corpuscular Hemoglobin 28.6 PG (26-34); Mean Corpuscular Volume 84.5 fL (80-100); Monocytes Absolute Auto 600 /uL (0-900); Neutrophils Absolute Auto 5600 /uL (1500-7000); Neutrophils Percent Auto 63.9 % (50-75); Platelet Count 319 X10^3/uL (150-400); Red Blood Cell Count 4.82 X10^6/uL (4.0-5.2); White Blood Cell Count 8.8 X10^3/uL (4.5-11.0)
[2022-10-31 15:39] LABS: Hemoglobin A1C% w Est Avg Glu 5.9 % (4.0-6.0)
[2022-10-31 15:43] LABS: Alanine Aminotransferase 21 IU/L (<35); Albumin 4.4 g/dL (3.5-5.0); Albumin Globulin Ratio 1.4 (1.0-2.8); Alkaline Phosphatase 100 U/L (38-126); Aspartate Aminotransferase 25 IU/L (14-36); BUN Creatinine Ratio 26.4 (6-22); Bilirubin Total 0.9 mg/dL (0.2-1.3); Blood Urea Nitrogen 24 mg/dL (7-17); Calcium 9.9 mg/dL (8.4-10.2); Carbon Dioxide 30 mmol/L (22-32); Chloride 99 mmol/L (98-107); Cholesterol 188 mg/dL (140-199); Estimated Glomerular Filt Rate > 60 mL/min (>60); Globulin 3.2 g/dL (1.7-4.1); Glucose 115 mg/dL (80-110); HDL Cholesterol 63 mg/dL (40-60); HEMOLYSIS < 15 (0-50); LDL Cholesterol Calculated 88 mg/dL (<100); Potassium 4.7 mmol/L (3.4-5.1); Sodium 138 mmol/L (137-145); Total Protein 7.6 g/dL (6.3-8.2); Triglycerides 183 mg/dL (35-150); Uric Acid 6.1 mg/dL (2.5-6.2)
== END ==
PROVIDERS: Referring Provider Family Medicine; Visit Provider Family Medicine
DX: Z00.00 Encounter for general adult medical examination without abnormal findings (principal)
CPT/HCPCS: 36415; 80053; 80061; 83036; 84550; 85025

== ENCOUNTER 2023-01-24 10:31 | Emergency (ER) | payer OTHER, SELFPAY ==
[2023-01-24] VITALS (16 sets, daily range): BP systolic 133–156; BP diastolic 62–81; PULSE 72–100; RESP 13–20; TEMP 36.7; O2SAT 97–100; BMI 53.2
--- NOTE | 2023-01-24 10:40 | DI.RAD.S_ITS ---
PROCEDURE: XR CHEST 1V INDICATIONS: chest pain TECHNIQUE: One view of the chest was acquired. COMPARISON: [facility], CR, XR CHEST 1V, 09/25/2021, 11:34. [facility], CR, XR CHEST 1V, 09/06/2021, 14:31. FINDINGS: Surgical changes and devices: None. Lungs and pleura: Lungs are clear. No pleural effusions or pneumothorax. Mediastinum: Mediastinal contours appear normal. Heart size is normal. Bones and chest wall: No suspicious bony lesions. Overlying soft tissues appear unremarkable. IMPRESSION: No acute cardiopulmonary process. Dictated by: Lloyd Kolb M.D. on 01/24/2023 at 11:41 Approved by: Lloyd Kolb M.D. on 01/24/2023 at 11:41
[2023-01-24 11:21] LABS: Add Manual Diff / Slide Review NO; Basophils Absolute Auto 100 /uL (0-100); Basophils Percent Auto 0.6 % (0-2); Eosinophils Absolute Auto 100 /uL (0-450); Eosinophils Percent Auto 1.6 % (2-4); Hematocrit 37.5 % (36-46); Hemoglobin 12.9 g/dL (12.0-16.0); Lymphocytes Absolute Auto 1800 /uL (1100-4500); Lymphocytes Percent Auto 19.7 % (25-40); Mean Corpuscular HGB Conc 34.5 % (30-36); Mean Corpuscular Hemoglobin 28.3 PG (26-34); Monocytes Absolute Auto 500 /uL (0-900); Monocytes Percent Auto 6.1 % (3-14); Neutrophils Absolute Auto 6500 /uL (1500-7000); Platelet Count 286 X10^3/uL (150-400); Red Blood Cell Count 4.57 X10^6/uL (4.0-5.2)
[2023-01-24 11:27] LABS: Prothrombin Time 11.4 SECONDS (10.1-12.7)
[2023-01-24 11:30] LABS: PTT Partial Thromboplastin Tim 32 SECONDS (26-36)
[2023-01-24 11:32] LABS: Alanine Aminotransferase 23 IU/L (<35); Albumin 4.3 g/dL (3.5-5.0); Albumin Globulin Ratio 1.2 (1.0-2.8); Alkaline Phosphatase 93 U/L (38-126); Aspartate Aminotransferase 39 IU/L (14-36); BUN Creatinine Ratio 30.7 (6-22); Bilirubin Total 0.9 mg/dL (0.2-1.3); Blood Urea Nitrogen 27 mg/dL (7-17); Carbon Dioxide 28 mmol/L (22-32); Chloride 101 mmol/L (98-107); Creatine Kinase 45 U/L (30-135); Estimated Glomerular Filt Rate > 60 mL/min (>60); Globulin 3.5 g/dL (1.7-4.1); Glucose 132 mg/dL (80-110); Lipase 88 U/L (23-300); Magnesium 1.8 mg/dL (1.6-2.3); Potassium 4.4 mmol/L (3.4-5.1); Sodium 137 mmol/L (137-145); Total Protein 7.8 g/dL (6.3-8.2)
[2023-01-24 11:33] LABS: HEMOLYSIS 100 (0-50)
[2023-01-24 11:43] LABS: Troponin I < 0.012 ng/mL (0.01-0.034)
[2023-01-24 15:56] LABS: NT-proBNP (BNP-Adult 18+) 35 pg/mL (<125)
[2023-01-24 16:01] LABS: Troponin I < 0.012 ng/mL (0.01-0.034)
--- NOTE | 2023-01-24 16:12 | ED_ITS ---
HPI - Chest Pain General Chief Complaint: Chest Pain Stated Complaint: chest pain/pressure/N /trouble breathing Time Seen by Provider: 01/24/23 15:11 Source: patient Mode of arrival: Ambulatory Limitations: no limitations History of Present Illness HPI narrative: This is a 62-year-old female with history of hypertension, dyslipidemia, prediabetes, sleep apnea who presents with complaint of chest pressure and disc omfort for the last 2-3 days. Patient states it is started at night has been persistent without any resolution in his worse when she lays flat. She states it does seem to be more positional lying flat makes it worse but it does not go away completely when she is upright. She states exertion does not seem to worsen it. It does not radiate anywhere it stays substernal. She states she felt a little nauseated this morning, she felt jittery. She denies any lightheadedness or passing out. No diaphoresis. She states she felt a little short of breath. No cold cough or congestion. She did her pool exercises yesterday did not make her symptoms worse although she had symptoms throughout the entire time. She denies any issues with bowel movements, urination, new swelling in her extremities. She notes that she tore for tendons in her shoulder she is been on meloxicam she stopped that about 5 days ago because she felt like she was getting big bumps in her chest intermittently. She is on medication for hypertension she takes 2 medications, GERD, dyslipidemia, she takes gabapentin. She is not on any diabetic medications and states she was prediabetic but her most recent check was below prediabetic levels. She is had tonsillectomy, cholecystectomy and D&C. No prior cardiac stents no known coronary artery disease. She would a stress test approximately 20 years ago. No tobacco, drinks 1 2 alcoholic drinks monthly, no illicit. Family history dad did pass away from a OK at age 45, maternal grandfather a cardiac issue at age 43. Sister has breast cancer. Patient states her primary care is [facility]. Patient does note her CPAP machine they have been able to get the fit appropriate but she has felt very uncomfortable in terms of the pressure and has not been working well she has not been using it regularly for the past year. Related Data Home Medications Medication Instructions Recorded Confirmed benazepril 10 mg tablet 10 mg PO DAILY 12/02/20 10/02/21 gabapentin 100 mg capsule 100 mg PO DAILY 12/02/20 10/02/21 rabeprazole 20 mg tablet,delayed 20 mg PO DAILY 12/02/20 05/17/21 release zolpidem 5 mg tablet 5 mg PO BEDTIME PRN Sleep 12/02/20 05/17/21 cyclobenzaprine 10 mg tablet 10 mg PO .prn Muscle spasm 03/30/21 05/17/21 sertraline 50 mg tablet 50 mg PO .prn 03/30/21 05/17/21 Previous Rx's Medication Instructions Recorded methocarbamol 750 mg tablet 750 mg PO QID PRN muscle pain #20 07/27/22 tabs Allergies Allergy/AdvReac Type Severity Reaction Status Date / Time lavender (Lavandula Allergy Severe Swelling Verified 01/24/23 10:38 angustifolia) of Lip/Tongue/Throat acetaminophen [From Vicodin] Allergy Rash Verified 01/24/23 10:38 hydrocodone [From Vicodin] Allergy Rash Verified 01/24/23 10:38 lanolin Allergy Rash Verified 01/24/23 10:38 hydromorphone AdvReac Severe Rash Verified 01/24/23 10:38 queaseEase Allergy Severe Swelling Uncoded 07/27/22 15:59 of Lip/Tongue/Throat Review of Systems Review of Systems ROS Unobtainable: All systems reviewed & are unremarkable except as noted in HPI and below Patient History Medical History Anxiety Marinelli's esophagus Chronic insomnia Degenerative arthritis Diverticulosis GERD (gastroesophageal reflux disease) HLD (hyperlipidemia) HTN (hypertension) Impaired fasting glucose Kidney stone Morbid obesity with BMI of 50.0-59.9, adult TYLOR (obstructive sleep apnea) Status post hysteroscopy (~12/30/20) Traumatic leg injury (2015) Surgical History History of colonoscopy (08/2019) Hx of cholecystectomy (2007) Hx of tonsillectomy (1969) Social History Smoking Status: Never smoker alcohol intake: current Smoking Status: Never smoker alcohol intake frequency: a few times a month Substance Use Type: does not use Exam Narrative Exam Narrative: GENERAL: Alert and oriented x three, obese female in mild distress. HEENT: Head normocephalic, atraumatic, EOMI, pupils reactive, face symmetric, moist mucous membranes NECK: Supple, full range of motion CARDIOVASCULAR: Regular rate and rhythm without murmurs, rubs or gallops. No reproducible chest pain. No JVD. No swelling bilateral lower extremities. RESPIRATORY: Breath sounds equal bilaterally, no wheezes rales or rhonchi. No tachypnea or accessory muscle use. ABDOMEN: Soft, nontender. Normoactive bowel sounds all 4 quadrants. No guarding or rebound, rigidity, no mass : No CVA tenderness EXTREMITIES: Normal range of motion, no clubbing or edema. Neurovascularly intact NEUROLOGICAL: Cranial nerves II through XII grossly intact. Moving all ext remities SKIN: Warm, dry, no petechiae, no rashes or lesions. Initial Vital Signs Initial Vital Signs: Vital Signs Temperature 98.0 F 01/24/23 10:38 Pulse Rate 100 H 01/24/23 10:38 Respiratory Rate 15 01/24/23 10:38 Blood Pressure 148/68 H 01/24/23 10:38 Pulse Oximetry 99 01/24/23 10:38 Oxygen Delivery Method Room Air 01/24/23 10:38 Course Orders Ordered: ED Orders 01/24/23 10:40 XR chest 1V Stat 01/24/23 10:46 EKG-12 Lead Stat 01/24/23 11:07 Complete Blood Count AUTO DIFF Stat Comprehensive Metabolic Panel Stat Lipase Stat Magnesium Stat PTT Partial Thromboplastin Jeremiah Stat Prothrombin Time INR Stat Troponin & CK Cardiac Panel Stat 01/24/23 15:25 BNP [NT-proBNP (BNP-Adult 18+)] Stat 01/24/23 15:42 Trop I [Troponin I] Stat 01/24/23 16:37 EKG-12 Lead Stat Discontinued Medications Aspirin (Aspirin 81 Mg Chew Tab) 324 mg PO NOW ONE Stop: 01/24/23 10:41 Last Admin: 01/24/23 14:14 Dose: Not Given Documented By: NELDA Vital Signs Vital signs: Vital Signs - 8 hr 01/24/23 11:30 01/24/23 11:30 01/24/23 12:00 Pulse Rate 79 Respiratory Rate 15 Blood Pressure 137/65 134/69 Pulse Oximetry 99 01/24/23 12:00 01/24/23 12:30 01/24/23 12:30 Pulse Rate 72 77 Respiratory Rate 15 13 Blood Pressure 138/66 Pulse Oximetry 100 100 01/24/23 13:00 01/24/23 13:00 01/24/23 13:30 Pulse Rate 80 81 Respiratory Rate 17 Blood Pressure 156/81 H Pulse Oximetry 99 100 01/24/23 13:31 01/24/23 13:31 01/24/23 14:00 Pulse Rate 79 73 Respiratory Rate 16 Blood Pressure 150/66 H Pulse Oximetry 100 99 01/24/23 14:01 01/24/23 14:01 01/24/23 14:30 Pulse Rate 79 Respiratory Rate 20 Blood Pressure 143/64 H 148/75 H Pulse Oximetry 100 01/24/23 14:30 01/24/23 15:00 01/24/23 15:00 Pulse Rate 73 74 Respiratory Rate 16 14 Blood Pressure 146/72 H Pulse Oximetry 99 97 01/24/23 15:30 01/24/23 15:30 01/24/23 16:00 Pulse Rate 74 Respiratory Rate 13 Blood Pressure 134/62 133/67 Pulse Oximetry 99 01/24/23 16:00 01/24/23 16:30 01/24/23 16:30 Pulse Rate 82 76 Respiratory Rate 14 15 Blood Pressure 141/70 H Pulse Oximetry 100 99 MDM - Chest Pain Lab Data 01/24/23 11:07 01/24/23 11:07 Labs: Lab Results 01/24/23 01/24/23 01/24/23 Range/Units 11:07 11:07 11:07 WBC 9.0 (4.5-11.0) X10^3/uL RBC 4.57 (4.0-5.2) X10^6/uL Hgb 12.9 (12.0-16.0) g/dL Hct 37.5 (36-46) % MCV 82.0 (80-100) fL MCH 28.3 (26-34) PG MCHC 34.5 (30-36) % RDW 14.0 (11.6-14.8) % Plt Count 286 (150-400) X10^3/uL Neut % (Auto) 72.0 (50-75) % Lymph % (Auto) 19.7 L (25-40) % [place] % (Auto) 6.1 (3-14) % Eos % (Auto) 1.6 L (2-4) % Baso % (Auto) 0.6 (0-2) % Neut # (Auto) 6500 (9853-8637) /uL Lymph # (Auto) 1800 (3826-8550) /uL [place] # (Auto) 500 (0-900) /uL Eos # (Auto) 100 (0-450) /uL Baso # (Auto) 100 (0-100) /uL PT 11.4 (10.1-12.7) SECONDS INR 1.0 (0.9-1.3) APTT 32 (26-36) SECONDS Sodium 137 (137-145) mmol/L Potassium 4.4 (3.4-5.1) mmol/L Chloride 101 (98-107) mmol/L Carbon Dioxide 28 (22-32) mmol/L BUN 27 H (7-17) mg/dL Creatinine 0.88 (0.52-1.04) mg/dL Estimated GFR > 60 (>60) mL/min BUN/Creatinine Ratio 30.7 H (6-22) Glucose 132 H (80-110) mg/dL Calcium 9.0 (8.4-10.2) mg/dL Magnesium 1.8 (1.6-2.3) mg/dL Total Bilirubin 0.9 (0.2-1.3) mg/dL AST 39 H (14-36) IU/L ALT 23 (<35) IU/L Alkaline Phosphatase 93 (38-126) U/L Total Creatine Kinase 45 (30-135) U/L CK-MB (CK-2) TNP CK-MB (CK-2) Rel Index TNP Troponin I < 0.012 (0.01-0.034) ng/mL NT-Pro-B Natriuret Pep (<125) pg/mL Total Protein 7.8 (6.3-8.2) g/dL Albumin 4.3 (3.5-5.0) g/dL Globulin 3.5 (1.7-4.1) g/dL Albumin/Globulin Ratio 1.2 (1.0-2.8) Lipase 88 (23-300) U/L 01/24/23 01/24/23 Range/Units 15:25 15:42 WBC (4.5-11.0) X10^3/uL RBC (4.0-5.2) X10^6/uL Hgb (12.0-16.0) g/dL Hct (36-46) % MCV (80-100) fL MCH (26-34) PG MCHC (30-36) % RDW (11.6-14.8) % Plt Count (150-400) X10^3/uL Neut % (Auto) (50-75) % Lymph % (Auto) (25-40) % [place] % (Auto) (3-14) % Eos % (Auto) (2-4) % Baso % (Auto) (0-2) % Neut # (Auto) (5339-1749) /uL Lymph # (Auto) (5096-1565) /uL [place] # (Auto) (0-900) /uL Eos # (Auto) (0-450) /uL Baso # (Auto) (0-100) /uL PT (10.1-12.7) SECONDS INR (0.9-1.3) APTT (26-36) SECONDS Sodium (137-145) mmol/L Potassium (3.4-5.1) mmol/L Chloride (98-107) mmol/L Carbon Dioxide (22-32) mmol/L BUN (7-17) mg/dL Creatinine (0.52-1.04) mg/dL Estimated GFR (>60) mL/min BUN/Creatinine Ratio (6-22) Glucose (80-110) mg/dL Calcium (8.4-10.2) mg/dL Magnesium (1.6-2.3) mg/dL Total Bilirubin (0.2-1.3) mg/dL AST (14-36) IU/L ALT (<35) IU/L Alkaline Phosphatase (38-126) U/L Total Creatine Kinase (30-135) U/L CK-MB (CK-2) CK-MB (CK-2) Rel Index Troponin I < 0.012 (0.01-0.034) ng/mL NT-Pro-B Natriuret Pep 35 (<125) pg/mL Total Protein (6.3-8.2) g/dL Albumin (3.5-5.0) g/dL Globulin (1.7-4.1) g/dL Albumin/Globulin Ratio (1.0-2.8) Lipase (23-300) U/L Urine Dip Bedside Urine Glucose Negative Bedside Urine Bilirubin - Negative Bedside Urine Ketone - Negative Urine Specific [place] 1.015 Bedside Urine Occult Blood - Negative Bedside Urine pH 6.0 Bedside Urine Protein - Negative Bedside Urine Urobilinogen - Negative Bedside Urine Nitrite - Negative Bedside Urine Leukocytes - Negative Esterase Imaging Data Chest x-ray: Radiologist's Impression: Morelia Esparza?(Giselle)??62??F??1960 ? Allergy/Adv: lavender (Lavandula angustifolia), acetaminophen, hydrocodone, lanolin, hydromorphone, [queaseEase] (More??) Close Chest X-Ray (Signed) Lloyd Kolb - 01/24/23 Chest CTA (Signed) Mane Rolle - 09/25/21 Chest X-Ray (Signed) Will Mooney - 09/25/[address] (Signed) Flor Day - 09/06/21 Chest X-Ray (Signed) Naun Akers - 09/06/21 Chest X-Ray (Signed) Fausto Parkinson - 05/17/21 DI Result 05/17/21 Abdomen/Pelvis CT (Signed) Khang Cheng - 04/19/21 Pelvis Ultrasound (Signed) Khang Cheng - 02/09/21 Knee X-Ray (Signed) Wendy Marquez - 11/08/20 Knee X-Ray (Signed) Wendy Marquez - 11/08/20 Launch?Image [address] [address] XRay Report Signed Patient: Morelia Esparza MR#: [id number] : 1960 Acct:[id number] Age/Sex: 62 / F Date of Service: 01/24/23 Loc: ED Accession Number: [id number] ?? Procedure: XR chest 1V Ordering Provider: Precious Lau D.O. PROCEDURE:? XR CHEST 1V ? INDICATIONS:? chest pain ? TECHNIQUE:? One view of the chest was acquired.? ? COMPARISON:? [facility], CR, XR CHEST 1V, 09/25/2021, 11:34.? [facility], CR, XR CHEST 1V, 09/06/2021, 14:31. ? FINDINGS:? ? Surgical changes and devices:? None.? ? Lungs and pleura:? Lungs are clear.? No pleural effusions or pneumothorax.? ? Mediastinum:? Mediastinal contours appear normal.? Heart size is normal.? ? Bones and chest wall:? No suspicious bony lesions.? Overlying soft tissues appear unremarkable.? ? IMPRESSION:? No acute cardiopulmonary process. ? ? ? Dictated by: Lloyd Kolb M.D. on 01/24/2023 at 11:41 ? ? Approved by: Lloyd Kolb M.D. on 01/24/2023 at 11:41?? ECG Data Attestation: I personally reviewed and interpreted this ECG as follows: Prior ECG tracings: available for review Interpretation: EKG 1. Sinus rhythm rate of 94 SC 122 QRS of 84 QTC of 445. No acute ST elevation or depression noted. No change from prior 09/25/2021. EKG 2. Sinus rhythm rate of 74 SC 134 QRS 84 QTC of 439. No acute ST changes. Appears similar to prior today. MDM Narrative Medical decision making narrative: This is a 62-year-old female with risk factors for cardiac disease who complains of substernal chest pressure worse when lying flat. Patient also has a little shortness of breath it has been at least 1-2 days of constant symptoms not worsened with exertion, more when she is lying flat. It has never resolved. She has no acute EKG changes and appears similar to prior from August of 2021. Troponins are negative x2 with greater than 24 hours of symptoms, CBC, CMP, coags, BNP, lipase and LFTs are negative. Chest x-ray shows no acute change. No other clear infectious changes. Patient has risk factor with dad in terms of cardiac history but not siblings. Discussed with patient we did discuss observation but she elects to return home, my suspicion for cardiac causes lower. She did note that her CPAP has not been working well in terms of the pressures and that this may be a component. She has had a history of reflux or GERD but states this feels different. Reviewed potential differential and need for return precautions and we discussed she should follow-up. Discharge Plan Departure Patient Disposition: Home Clinical Impression: Chest pain Instructions: DI for Chest Pain Activity Restrictions/Additional Instructions: Please follow up with your physician for recheck. I would work with the sleep study folks to get your CPAP to work better so that you use it regularly. I hope you continue to feel better. Please return for new or worsening symptoms, new or worsening chest pain, shortness of breath, lightheadedness or passing out, persistent nausea or vomiting, sweatiness, new swelling of extremities or other new or concerning changes. Prescriptions: No Action methocarbamol 750 mg tablet 750 mg PO QID PRN (Reason: muscle pain) Qty: 20 0RF cyclobenzaprine 10 mg tablet 10 mg PO .prn benazepril 10 mg tablet 10 mg PO DAILY gabapentin 100 mg capsule 100 mg PO DAILY rabeprazole 20 mg tablet,delayed release (DR/EC) 20 mg PO DAILY Patient Comments: 3 months ago was last dose zolpidem 5 mg tablet 5 mg PO BEDTIME PRN (Reason: Sleep) sertraline 50 mg tablet 50 mg PO .prn Referrals: Analy Linton DO [Primary Care Provider] - Stand Alone Forms: Patient Portal/API
== END 2023-01-24 16:43 | disposition home or self-care (01) ==
PROVIDERS: Emergency Provider Emergency Medicine; PCP Family Medicine
DX: R07.9 Chest pain, unspecified (principal); R06.02 Shortness of breath
CPT/HCPCS: 36415; 71045; 80053; 81003; 82550; 83690; 83735; 83880; 84484; 85025; 85610; 85730; 93005; 93010; 99283; 99284

== ENCOUNTER → 2023-07-16 10:16 | Outpatient (CLI) | payer OTHER, SELFPAY ==
--- NOTE | 2023-07-16 10:17 | DI.US.S_ITS ---
PROCEDURE: US PELVIC COMPLETE INDICATIONS: ENDOMETRIAL THICKENING TECHNIQUE: Real-time scanning was performed of the pelvic organs, with image documentation. Additional endovaginal scanning was necessary due to incomplete visualization of the adnexal and endometrial structures by transabdominal scanning. COMPARISON: , US, US PELVIC COMPLETE, 02/09/2021, 13:27. FINDINGS: Uterus: Uterus is anteverted and normal in size at 5.8 x 2.6 x 4.1 cm. The myometrium is homogeneous. The endometrium measures 4 mm combined thickness. Endometrial calcification present. Lower uterine segment myometrial calcification also present. Ovaries: The right ovary measures 0.7 x 1.8 x 1.1 cm, with a calculated ovarian volume of 1 cc. The left ovary measures 0.9 x 1.9 x 1.4 cm, with a calculated ovarian volume of 1 cc. The ovaries have a normal sonographic appearance. Less than 12 follicles can be seen in each ovary. No adnexal masses are seen. Other: No pathologic free abdominal or pelvic fluid. IMPRESSION: Endometrial thickness measures 4 millimeters, within normal limits. Benign endometrial and myometrial calcifications. We strive to produce accurate, complete, and clear reports of imaging services. To assist us in improving patient care, this report was composed using standard report templates and voice recognition software. Therefore, it may contain abnormal punctuation, insertions and/or omissions. Occasional wrong-word or sound-alike substitutions may occur. Though we review the report and make efforts to correct it, we do recommend that the report be read carefully in proper context to recognize any text inaccuracies. Dictated by: Lloyd Kolb M.D. on 07/16/2023 at 12:39 Approved by: Lloyd Kolb M.D. on 07/16/2023 at 12:41
== END ==
PROVIDERS: PCP Family Medicine; Referring Provider Family Medicine; Visit Provider Family Medicine
DX: N85.8 Other specified noninflammatory disorders of uterus (principal); R10.2 Pelvic and perineal pain; R93.89 Abnormal findings on diagnostic imaging of other specified body structures
CPT/HCPCS: 76830; 76856

== ENCOUNTER → 2023-10-17 13:06 | Outpatient (CLI) | payer OTHER, SELFPAY ==
[2023-10-17 13:28] LABS: Add Manual Diff / Slide Review NO; Basophils Absolute Auto 0 /uL (0-100); Basophils Percent Auto 0.3 % (0-2); Eosinophils Absolute Auto 100 /uL (0-450); Eosinophils Percent Auto 1.2 % (2-4); Hematocrit 41.3 % (36-46); Lymphocytes Absolute Auto 2100 /uL (1100-4500); Lymphocytes Percent Auto 26.4 % (25-40); Mean Corpuscular HGB Conc 33.8 % (30-36); Mean Corpuscular Hemoglobin 28.5 PG (26-34); Mean Corpuscular Volume 84.1 fL (80-100); Monocytes Absolute Auto 600 /uL (0-900); Monocytes Percent Auto 7.8 % (3-14); Neutrophils Absolute Auto 5000 /uL (1500-7000); Neutrophils Percent Auto 64.3 % (50-75); Platelet Count 313 X10^3/uL (150-400); Red Blood Cell Count 4.91 X10^6/uL (4.0-5.2); Red Cell Distribution Width 14.5 % (11.6-14.8); White Blood Cell Count 7.9 X10^3/uL (4.5-11.0)
[2023-10-17 13:55] LABS: Alanine Aminotransferase 18 IU/L (<35); Albumin 4.6 g/dL (3.5-5.0); Albumin Globulin Ratio 1.3 (1.0-2.8); Alkaline Phosphatase 96 U/L (38-126); Aspartate Aminotransferase 27 IU/L (14-36); BUN Creatinine Ratio 14.7 (6-22); Blood Urea Nitrogen 15 mg/dL (7-17); C-Reactive Protein Quant 1.1 mg/dL (<1.0); Carbon Dioxide 29 mmol/L (22-32); Chloride 99 mmol/L (98-107); Cholesterol 169 mg/dL (140-199); Estimated Glomerular Filt Rate > 60 mL/min (>60); Globulin 3.6 g/dL (1.7-4.1); Glucose 107 mg/dL (80-110); HDL Cholesterol 53 mg/dL (40-60); HEMOLYSIS < 15 (0-50); LDL Cholesterol Calculated 76 mg/dL (<100); Potassium 4.1 mmol/L (3.4-5.1); Sodium 138 mmol/L (137-145); Total Protein 8.2 g/dL (6.3-8.2); Triglycerides 202 mg/dL (35-150); Uric Acid 6.9 mg/dL (2.5-6.2)
[2023-10-17 14:23] LABS: TSH w/ Reflex to FT4 3.34 uIU/mL (0.47-4.68)
[2023-10-17 14:25] LABS: Testosterone 53.7 ng/dL (5.71-77.0)
[2023-10-23 21:51] LABS: Estrogen 202 pg/mL (40-244)
[2023-11-02 15:33] LABS: % Free Progesterone 1.8 % (.); Free Progesterone 0.54 ng/dL (.); Progesterone, Serum 30 ng/dL (.)
== END ==
PROVIDERS: PCP Family Medicine; Referring Provider Family Medicine; Visit Provider Family Medicine
DX: Z13.1 Encounter for screening for diabetes mellitus (principal); Z13.29 Encounter for screening for other suspected endocrine disorder; I10 Essential (primary) hypertension; K22.70 Barrett's esophagus without dysplasia; R93.89 Abnormal findings on diagnostic imaging of other specified body structures; E34.9 Endocrine disorder, unspecified; Z79.899 Other long term (current) drug therapy
CPT/HCPCS: 36415; 80053; 80061; 82672; 83036; 84144; 84403; 84443; 84550; 84999; 85025; 86140

== ENCOUNTER → 2024-01-03 14:33 | Outpatient (CLI) | payer OTHER, SELFPAY | PROVIDERS: PCP Family Medicine; Referring Provider Family Medicine; Visit Provider Family Medicine | DX: Z91.89 Other specified personal risk factors, not elsewhere classified (principal) | CPT/HCPCS: 81162 ==

== ENCOUNTER → 2024-02-11 15:16 | Outpatient (CLI) | payer OTHER, SELFPAY ==
--- NOTE | 2024-02-11 15:19 | DI.RAD.S_ITS ---
PROCEDURE: XR FOOT LT MIN 3V INDICATIONS: Left Foot Pain TECHNIQUE: 3 views of the foot were acquired. COMPARISON: None. FINDINGS: Bones: No fractures or dislocations. Pes planus. No suspicious bony lesions. Moderate degenerative joint disease, most pronounced at the 1st metatarsophalangeal joint. Plantar calcaneal spurring. Note is made of bipartite medial sesamoid. Soft tissues: No tibiotalar joint effusion. Achilles tendon appears normal. IMPRESSION: 1. No acute bony abnormality. 2. Pes planus. 3. Moderate degenerative joint disease. 4. Calcaneal spurring. Dictated by: Jammie Marquez M.D. on 02/11/2024 at 16:42 Approved by: Jammie Marquez M.D. on 02/11/2024 at 16:44
== END ==
PROVIDERS: PCP Family Medicine; Referring Provider Podiatrist Foot & Ankle Surgery; Visit Provider Podiatrist Foot & Ankle Surgery
DX: M19.072 Primary osteoarthritis, left ankle and foot (principal); M21.42 Flat foot [pes planus] (acquired), left foot; M77.32 Calcaneal spur, left foot; M79.672 Pain in left foot
CPT/HCPCS: 73630

== ENCOUNTER → 2024-04-13 | Outpatient (CLI) | payer OTHER, SELFPAY ==
--- NOTE | 2024-04-13 11:08 | DI.RAD.S_ITS ---
PROCEDURE: XR TIBIA FUBULA RT 2V INDICATIONS: deep calf pain, rule out bone malignancy, ectopic calcium de TECHNIQUE: 2 views of the tibia and fibula were acquired. COMPARISON: None. FINDINGS: Bones: No fractures or dislocations. No suspicious bony lesions. Mild knee joint degeneration. Soft tissues: No suspicious soft tissue calcifications or masses. Anterior soft tissue calcifications. IMPRESSION: No definite radiographic abnormality. If pain persists with conservative management, consider repeat plain films or cross sectional imaging such as CT or MRI for further assessment. Dictated by: Samir Tariq [facility] Interpreted: Holly Ramires MD on 04/14/2024 at 18:36 Transcribed by: SNEHAL on 04/14/2024 at 18:37 Approved by: Holly Ramires M.D. on 04/15/2024 at 16:44
== END ==
LOC: RAD 11:07
PROVIDERS: PCP Family Medicine; Referring Provider Family Medicine; Visit Provider Family Medicine
DX: M17.11 Unilateral primary osteoarthritis, right knee (principal); M79.661 Pain in right lower leg
CPT/HCPCS: 73590

== ENCOUNTER → 2024-05-14 10:51 | Outpatient (CLI) | payer OTHER, SELFPAY ==
[2024-05-14 11:23] LABS: Estimated Glomerular Filt Rate > 60 mL/min (>60)
== END ==
LOC: LAB 10:53
PROVIDERS: PCP Family Medicine; Referring Provider Family Medicine; Visit Provider Family Medicine
DX: E78.5 Hyperlipidemia, unspecified (principal)
CPT/HCPCS: 36415; 82565

== ENCOUNTER → 2024-05-18 09:26 | Outpatient (CLI) | payer OTHER, SELFPAY ==
--- NOTE | 2024-05-18 09:26 | DI.CT.S_ITS ---
PROCEDURE: CT ANGIO ABD AORTA RUNOFF INDICATIONS: intermittent pain in Right greater than left lower extremity TECHNIQUE: After the administration of intravenous contrast, 2.5 mm sections acquired from T12 to the feet, with optional delayed image acquisition from the knees to the feet. 3-dimensional maximum intensity projection (MIP) coronal and sagittal reformats, and/or 3-dimensional volume rendering reformatting was then performed. For radiation dose reduction, the following was used: automated exposure control. COMPARISON: None. FINDINGS: Image Quality: Diagnostic. Abdominal aorta: Widely patent Splanchnic vessels: Widely patent Right lower extremity: Common iliac, external iliac, common femoral, SFA, popliteal, and 3 runoff vessels are widely patent. Left lower extremity: Common iliac, external iliac, common femoral, SFA, popliteal, and 3 runoff vessels are widely patent. Lower Chest: Small hiatal hernia. Extreme lung bases are clear. Heart size is within normal limits. ABDOMEN: Liver: No solid mass. Gallbladder: Absent Biliary ducts: No biliary dilation. Pancreas: No ductal dilation. Spleen: Size is within normal limits. Adrenal Glands: No adrenal nodules. Kidneys and Ureters: No hydronephrosis. No solid mass. No complex renal cystic lesion which requires follow up. Stomach and Bowel: Normal colonic caliber, without significant wall thickening. Diverticulosis with no evidence of diverticulitis. Peritoneum: No abnormal intraperitoneal fluid. No free air. Ventral Wall: Rectus diastasis plus fat containing periumbilical hernia. Abdominal Nodes: No retroperitoneal or mesenteric adenopathy by size criteria. Vessels: Aorta and inferior vena cava are normal in size. PELVIS: Pelvic Organs: Unremarkable. Bladder: Unremarkable. Pelvic Nodes: No enlarged lymph nodes. Miscellaneous: No inguinal hernias are seen. Bones: No aggressive osseous abnormality. IMPRESSION: 1. Unremarkable CTA of the abdominal aorta and runoff vessels. Widely patent vasculature with three-vessel runoff bilaterally. 2. Small hiatal hernia. 3. Remote cholecystectomy. 4. Diverticulosis without CT evidence of acute diverticulitis. 5. Rectus diastasis, fat containing periumbilical hernia. Dictated by: Morales Altman M.D. on 05/19/2024 at 9:10 Approved by: Morales Altman M.D. on 05/19/2024 at 9:15
== END ==
PROVIDERS: PCP Family Medicine; Referring Provider Family Medicine; Visit Provider Family Medicine
DX: K44.9 Diaphragmatic hernia without obstruction or gangrene (principal); K42.9 Umbilical hernia without obstruction or gangrene; M79.661 Pain in right lower leg; K57.90 Diverticulosis of intestine, part unspecified, without perforation or abscess without bleeding; M62.08 Separation of muscle (nontraumatic), other site; E78.5 Hyperlipidemia, unspecified; Z91.89 Other specified personal risk factors, not elsewhere classified; Z90.49 Acquired absence of other specified parts of digestive tract
CPT/HCPCS: 75635; Q9967

== ENCOUNTER → 2024-10-23 15:17 | Outpatient (CLI) | payer OTHER, SELFPAY ==
[2024-10-23 16:16] LABS: Add Manual Diff / Slide Review NO; Basophils Absolute Auto 100 /uL (0-100); Basophils Percent Auto 1.1 % (0-2); Eosinophils Absolute Auto 100 /uL (0-450); Eosinophils Percent Auto 1.5 % (2-4); Hematocrit 39.3 % (36-46); Hemoglobin 13.4 g/dL (12.0-16.0); Lymphocytes Absolute Auto 2100 /uL (1100-4500); Lymphocytes Percent Auto 22.4 % (25-40); Mean Corpuscular HGB Conc 34.2 % (30-36); Mean Corpuscular Hemoglobin 29.2 PG (26-34); Mean Corpuscular Volume 85.4 fL (80-100); Monocytes Absolute Auto 600 /uL (0-900); Monocytes Percent Auto 6.8 % (3-14); Neutrophils Absolute Auto 6300 /uL (1500-7000); Neutrophils Percent Auto 68.2 % (50-75); Platelet Count 314 X10^3/uL (150-400); Red Cell Distribution Width 14.4 % (11.6-14.8); White Blood Cell Count 9.2 X10^3/uL (4.5-11.0)
[2024-10-23 16:30] LABS: Hemoglobin A1C% w Est Avg Glu 5.7 % (4.0-6.0)
[2024-10-23 16:37] LABS: Alanine Aminotransferase 26 IU/L (<35); Albumin 4.3 g/dL (3.5-5.0); Albumin Globulin Ratio 1.7 (1.0-2.8); Alkaline Phosphatase 94 U/L (38-126); Aspartate Aminotransferase 33 IU/L (14-36); BUN Creatinine Ratio 20.2 (6-22); Bilirubin Total 0.8 mg/dL (0.2-1.3); Blood Urea Nitrogen 19 mg/dL (7-17); Calcium 9.5 mg/dL (8.4-10.2); Carbon Dioxide 23 mmol/L (22-32); Chloride 104 mmol/L (98-107); Cholesterol 170 mg/dL (140-199); Estimated Glomerular Filt Rate > 60 mL/min (>60); Globulin 2.6 g/dL (1.7-4.1); Glucose 132 mg/dL (80-110); HDL Cholesterol 71 mg/dL (40-60); HEMOLYSIS < 15 (0-50); LDL Cholesterol Calculated 54 mg/dL (<100); Potassium 4.3 mmol/L (3.4-5.1); Sodium 138 mmol/L (137-145); Total Protein 6.9 g/dL (6.3-8.2); Triglycerides 227 mg/dL (35-150); Uric Acid 7.5 mg/dL (2.5-6.2)
[2024-10-24 04:36] LABS: CRP, High Sensitivity 2.36 mg/L (0.00-3.00)
== END ==
LOC: LAB 15:18
PROVIDERS: PCP Family Medicine; Referring Provider Family Medicine; Visit Provider Family Medicine
DX: E88.810 Metabolic syndrome (principal); E66.9 Obesity, unspecified; E78.5 Hyperlipidemia, unspecified; I10 Essential (primary) hypertension; E66.01 Morbid (severe) obesity due to excess calories; R73.03 Prediabetes; Z68.43 Body mass index [BMI] 50.0-59.9, adult
CPT/HCPCS: 36415; 80053; 80061; 83036; 84550; 85025; 86140